=== PATIENT | male | born 1955 | race Caucasian/White ===

== ENCOUNTER 2016-10-15 23:11 | Emergency (ER) | payer MEDICARE, OTHER ==
[2016-10-15 23:16] VITALS: BP 147/85; PULSE 94; RESP 20; TEMP 97.8
[2016-10-15] MEDS ORDERED: PROPARACAINE 0.5% OPHTH DROPS 15 ML BTL LEFT EYE STA (23:56)
[2016-10-16] MEDS ORDERED: TOBRAMYCIN 0.3% OPHTH DROPS 5 ML BTL LEFT EYE STA (00:06)
--- NOTE | 2016-10-16 00:11 | ED ---
General Adult HPI - General Chief complaint: ENT Stated complaint: metal in eye Time Seen by Provider: 10/15/16 23:56 Source: patient, RN notes reviewed Mode of arrival: ambulatory Limitations: no limitations - History of Present Illness Initial comments: Patient is a pleasant 61-year-old male presenting to the emergency department complaining of metal in left eye. Patient was grinding yesterday and noticed metal in his eye. Patient was trying to flush out at home without success and was advised to come to emergency department by family member. Tetanus immunization is less than 5 years. No other area of injury or concern. No visual change. Patient only has mild discomfort in the left eye. - Related Data Home Medications Medication Instructions Recorded Confirmed Albuterol Nebulized [Ventolin 2.5 mg INHALATION RT-QID 12/08/15 10/15/16 Nebulized] Albuterol Sulfate [Proventil Hfa] 1 - 2 puff INHALATION Q6H PRN 12/08/15 Budesonide-Formot 160-4.5 Mcg 2 puff INHALATION RT-BID 12/08/15 10/15/16 [Symbicort 160-4.5 Mcg Inhaler] Tiotropium 18 Mcg/Puff [Spiriva] 1 cap INHALATION RT-DAILY 12/08/15 10/15/16 oxyCODONE-APAP 10-325MG [Percocet 1 tab PO QID PRN 10/15/16 10/15/16 10-325 mg] Allergies Allergy/AdvReac Type Severity Reaction Status Date / Time No Known Allergies Allergy Verified 10/15/16 23:36 Review of Systems ROS Statement: Those systems with pertinent positive or pertinent negative responses have been documented in the HPI. ROS Other: All systems not noted in ROS Statement are negative. Constitutional: Denies: fever Eyes: Reports: eye pain (Mild discomfort, foreign body). Denies: eye discharge , vision change ENT: Denies: ear pain Respiratory: Denies: cough Cardiovascular: Denies: chest pain Endocrine: Denies: fatigue Gastrointestinal: Denies: abdominal pain Genitourinary: Denies: dysuria Musculoskeletal: Denies: back pain Skin: Denies: rash Neurological: Denies: weakness Past Medical History Past Medical History: COPD, Sleep Apnea/CPAP/BIPAP Additional Past Medical History / Comment(s): varicose veins, fell in 2002 with back and shoulder injury History of Any Multi-Drug Resistant Organisms: MRSA Date of last positivie culture/infection: approx 2007 MDRO Source:: back of left leg Past Surgical History: Orthopedic Surgery, Tonsillectomy Additional Past Surgical History / Comment(s): rt hand -little finger, left rotator cuff surgery, rhinoplasty x 2, right shoulder, right carpal tunnel release. Past Anesthesia/Blood Transfusion Reactions: No Reported Reaction Past Psychological History: No Psychological Hx Reported Smoking Status: Former smoker Past Alcohol Use History: None Reported Past Drug Use History: None Reported - Past Family History Mother Family Medical History: No Reported History General Exam Limitations: no limitations General appearance: alert, in no apparent distress Head exam: Present: atraumatic Eye exam: Present: other (Left eye with mild injection, foreign body just inferior to the pupil.) ENT exam: Present: normal oropharynx Neck exam: Present: normal inspection Respiratory exam: Present: normal lung sounds bilaterally Cardiovascular Exam: Present: regular rate, normal rhythm GI/Abdominal exam: Present: soft. Absent: tenderness Extremities exam: Present: normal inspection Neurological exam: Present: alert Psychiatric exam: Present: normal affect, normal mood Skin exam: Present: normal color Course Vital Signs 10/15/16 23:13 Temperature 97.8 F Pulse Rate 94 Respiratory 20 Rate Blood Pressure 147/85 O2 Sat by Pulse 97 Oximetry Procedures - Procedures Initial comment: Foreign body removal left eye. Verbal informed consent provided. Left eye anesthetized using proparacaine. Small foreign body, approximately 2 mm removed using a wet cotton swab. No complication. Disposition Clinical Impression: Foreign body of left eye Disposition: HOME SELF-CARE Condition: Stable Instructions: Eye Foreign Body (ED) Additional Instructions: Please follow-up with your doctor this week for recheck. Return for increased redness, drainage, fever, worsening symptoms or other concerns. Use Tobrex eyedrops: 2 drops 4 times a day for the next 5 days. Referrals: Johan Chaudhary DO [Primary Care Provider] - 1-2 days Time of Disposition: 00:11
== END 2016-10-16 00:15 | disposition home or self-care (01) ==
LOC: EC 23:11
DX: T15.02XA Foreign body in cornea, left eye, initial encounter (principal); J44.9 Chronic obstructive pulmonary disease, unspecified; Z87.891 Personal history of nicotine dependence; Z79.51 Long term (current) use of inhaled steroids; Z79.899 Other long term (current) drug therapy
CPT/HCPCS: 65220; 99283

== ENCOUNTER → 2017-01-29 | Outpatient (CLI) | payer MEDICARE, OTHER | END | disposition home or self-care (01) | LOC: LABWHC1 11:56 | PROVIDERS: ATTEND Orthopaedic Surgery | DX: Z01.812 Encounter for preprocedural laboratory examination (principal) | CPT/HCPCS: 87070 ==

== ENCOUNTER 2017-03-05 04:07 | Emergency (ER) | payer MEDICARE, OTHER ==
[2017-03-05] MEDS ORDERED: ALBUTEROL NEBULIZED 2.5 MG/3 ML INHALATION STA (04:19)
[2017-03-05] MEDS ORDERED: IPRATROPIUM 0.5 MG/2.5 ML NEBU INHALATION STA (04:19)
[2017-03-05] MEDS ORDERED: methylPREDNISolone SOD SUCCI 125 MG/2 ML VIAL IV STA (04:19)
--- NOTE | 2017-03-05 04:23 | ED ---
General Adult HPI - General Chief complaint: Shortness of Breath Stated complaint: SOB Time Seen by Provider: 03/05/17 04:09 Source: patient, EMS, RN notes reviewed, old records reviewed Mode of arrival: EMS Limitations: no limitations - History of Present Illness Initial comments: 7-year-old male with history of COPD presents for evaluation of worsening cough and dyspnea. Patient reports productive cough with yellow rose sputum. Denies any chest pain. Denies fever. Symptoms have been progressing over the past 3 days. Patient is not currently on home oxygen, he does have severe COPD and tobacco use history. No known history of heart failure. Patient denies lower extremity swelling. Denies abdominal pain denies chest pain. Denies vomiting or diarrhea. - Related Data Home Medications Medication Instructions Recorded Confirmed Albuterol Nebulized [Ventolin 2.5 mg INHALATION RT-QID 12/08/15 02/12/17 Nebulized] Albuterol Sulfate [Proventil Hfa] 1 - 2 puff INHALATION RT-Q6H PRN 12/08/1502/17 Budesonide-Formot 160-4.5 Mcg 2 puff INHALATION RT-BID 12/08/15 02/12/17 [Symbicort 160-4.5 Mcg Inhaler] Tiotropium 18 Mcg/Puff [Spiriva] 1 cap INHALATION RT-DAILY 12/08/15 02/12/17 oxyCODONE-APAP 10-325MG [Percocet 1 tab PO QID PRN 10/15/16 02/12/17 10-325 mg] Atorvastatin Calcium [Lipitor] 20 mg PO HS 02/06/17 02/12/17 Previous Rx's Medication Instructions Recorded Rivaroxaban [Xarelto] 10 mg PO DAILY #12 tab 02/12/17 Levofloxacin [Levaquin] 500 mg PO DAILY #14 tab 03/05/17 predniSONE 50 mg PO DAILY #5 tab 03/05/17 Allergies Allergy/AdvReac Type Severity Reaction Status Date / Time No Known Allergies Allergy Verified 02/12/17 14:12 Review of Systems ROS Statement: Those systems with pertinent positive or pertinent negative responses have been documented in the HPI. ROS Other: All systems not noted in ROS Statement are negative. Past Medical History Past Medical History: COPD, Sleep Apnea/CPAP/BIPAP Additional Past Medical History / Comment(s): varicose veins, fell in 2002 with back and shoulder injury History of Any Multi-Drug Resistant Organisms: MRSA Date of last positivie culture/infection: approx 2007 MDRO Source:: back of left leg Past Surgical History: Orthopedic Surgery, Tonsillectomy Additional Past Surgical History / Comment(s): rt hand -little finger, left rotator cuff surgery, rhinoplasty x 2, right shoulder, right carpal tunnel release, TOTAL LEFT SHOULDER ARTHROPLASTY Past Anesthesia/Blood Transfusion Reactions: No Reported Reaction Past Psychological History: No Psychological Hx Reported Smoking Status: Former smoker Past Alcohol Use History: None Reported Past Drug Use History: None Reported - Past Family History Mother Family Medical History: No Reported History General Exam Limitations: no limitations General appearance: alert, in no apparent distress Head exam: Present: atraumatic, normocephalic Eye exam: Present: normal appearance, PERRL ENT exam: Present: normal exam Neck exam: Present: normal inspection. Absent: tenderness, meningismus Respiratory exam: Present: wheezes, decreased breath sounds (Significantly decreased breath sounds particularly on the left), prolonged expiratory. Absent : respiratory distress Cardiovascular Exam: Present: regular rate, normal rhythm GI/Abdominal exam: Present: soft. Absent: distended, tenderness Extremities exam: Present: normal inspection, normal capillary refill. Absent: pedal edema Neurological exam: Present: alert, oriented X3, CN II-XII intact. Absent: motor sensory deficit Psychiatric exam: Present: normal affect, normal mood Skin exam: Present: warm, dry, intact. Absent: cyanosis, diaphoretic Course Vital Signs 03/05/17 03/05/17 03/05/17 04:08 04:32 04:43 Temperature 98.7 F Pulse Rate 97 89 96 Respiratory 24 Rate Blood Pressure 107/56 O2 Sat by Pulse 100 Oximetry - Reevaluation(s) Reevaluation #1: 03/05/17 05:38 On reevaluation, patient is feeling significantly better, improved air entry on pulmonary auscultation. EKG Findings - EKG Comments: EKG Findings:: EKG shows normal sinus rhythm with a ventricular rate 90, UT interval 124, castration 78, QTC 447, no signs of ischemia Medical Decision Making - Medical Decision Making 61-year-old male with COPD presenting with cough and dyspnea consistent with COPD exacerbation. Chest x-ray shows COPD with possible early infiltrate and pneumonia. Patient's vital signs are stable. Laboratory studies reveal white blood cell count 7.0, stable hemoglobin, reactive platelets of 497 troponin negative EKG nonischemic. Patient is significantly improved after steroids and advised albuterol and Atrovent. He is eager for discharge, does not want to be admitted for treatment. He will be started on steroids and Levaquin. He will return the emergency department with worsening symptoms. 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 - Lab Data Result diagrams: 03/05/17 04:20 03/05/17 04:20 Lab Results 03/05/17 03/05/17 03/05/17 Range/Units 04:20 04:20 04:20 WBC 7.0 (3.8-10.6) k/uL RBC 3.44 L (4.30-5.90) m/uL Hgb 10.3 L (13.0-17.5) gm/dL Hct 31.9 L (39.0-53.0) % MCV 92.6 (80.0-100.0) fL MCH 29.9 (25.0-35.0) pg MCHC 32.3 (31.0-37.0) g/dL RDW 13.6 (11.5-15.5) % Plt Count 497 H D (150-450) k/uL Neutrophils % 78 % Lymphocytes % 12 % Monocytes % 6 % Eosinophils % 1 % Basophils % 0 % Neutrophils # 5.5 (1.3-7.7) k/uL Lymphocytes # 0.9 L (1.0-4.8) k/uL Monocytes # 0.4 (0-1.0) k/uL Eosinophils # 0.1 (0-0.7) k/uL Basophils # 0.0 (0-0.2) k/uL Hypochromasia Slight PT (9.0-12.0) sec INR (<1.2) APTT (22.0-30.0) sec Sodium 139 (137-145) mmol/L Potassium 4.7 (3.5-5.1) mmol/L Chloride 100 (98-107) mmol/L Carbon Dioxide 28 (22-30) mmol/L Anion Gap 11 mmol/L BUN 25 H (9-20) mg/dL Creatinine 1.20 (0.66-1.25) mg/dL Est GFR (MDRD) Af Amer >60 (>60 ml/min/1.73 sqM) Est GFR (MDRD) Non-Af >60 (>60 ml/min/1.73 sqM) Glucose 117 H (74-99) mg/dL Calcium 8.5 (8.4-10.2) mg/dL Magnesium 2.2 (1.6-2.3) mg/dL Total Bilirubin 0.2 (0.2-1.3) mg/dL AST 25 (17-59) U/L ALT 32 (21-72) U/L Alkaline Phosphatase 111 (38-126) U/L Total Creatine Kinase 193 H (55-170) U/L CK-MB (CK-2) 3.7 H* (0.0-2.4) ng/mL CK-MB (CK-2) Rel Index 1.9 Troponin I <0.012 (0.000-0.034) ng/mL NT-Pro-B Natriuret Pep pg/mL Total Protein 6.6 (6.3-8.2) g/dL Albumin 3.4 L (3.5-5.0) g/dL 03/05/17 03/05/17 Range/Units 04:20 04:20 WBC (3.8-10.6) k/uL RBC (4.30-5.90) m/uL Hgb (13.0-17.5) gm/dL Hct (39.0-53.0) % MCV (80.0-100.0) fL MCH (25.0-35.0) pg MCHC (31.0-37.0) g/dL RDW (11.5-15.5) % Plt Count (150-450) k/uL Neutrophils % % Lymphocytes % % Monocytes % % Eosinophils % % Basophils % % Neutrophils # (1.3-7.7) k/uL Lymphocytes # (1.0-4.8) k/uL Monocytes # (0-1.0) k/uL Eosinophils # (0-0.7) k/uL Basophils # (0-0.2) k/uL Hypochromasia PT 11.2 (9.0-12.0) sec INR 1.2 H (<1.2) APTT 24.8 (22.0-30.0) sec Sodium (137-145) mmol/L Potassium (3.5-5.1) mmol/L Chloride (98-107) mmol/L Carbon Dioxide (22-30) mmol/L Anion Gap mmol/L BUN (9-20) mg/dL Creatinine (0.66-1.25) mg/dL Est GFR (MDRD) Af Amer (>60 ml/min/1.73 sqM) Est GFR (MDRD) Non-Af (>60 ml/min/1.73 sqM) Glucose (74-99) mg/dL Calcium (8.4-10.2) mg/dL Magnesium (1.6-2.3) mg/dL Total Bilirubin (0.2-1.3) mg/dL AST (17-59) U/L ALT (21-72) U/L Alkaline Phosphatase (38-126) U/L Total Creatine Kinase (55-170) U/L CK-MB (CK-2) (0.0-2.4) ng/mL CK-MB (CK-2) Rel Index Troponin I (0.000-0.034) ng/mL NT-Pro-B Natriuret Pep 100 pg/mL Total Protein (6.3-8.2) g/dL Albumin (3.5-5.0) g/dL Disposition Clinical Impression: Acute exacerbation of chronic obstructive airways disease, Community acquired pneumonia Disposition: HOME SELF-CARE Condition: Fair Instructions: COPD (Chronic Obstructive Pulmonary Disease) (ED), Pneumonia (ED) Prescriptions: Levofloxacin [Levaquin] 500 mg PO DAILY #14 tab predniSONE 50 mg PO DAILY #5 tab Referrals: None,Stated [Primary Care Provider] - 1-2 days Derek Naranjo MD [STAFF PHYSICIAN] - 1-2 days Time of Disposition: 05:42
[2017-03-05 04:32] LABS: Basophils % (A) 0 %; Eosinophils # (A) 0.1 k/uL (0-0.7); Eosinophils % (A) 1 %; HCT 31.9 % (39.0-53.0); HGB 10.3 gm/dL (13.0-17.5); Hypochromasia Slight; Lymphocytes # (A) 0.9 k/uL (1.0-4.8); Lymphocytes % (A) 12 %; MCH 29.9 pg (25.0-35.0); MCHC 32.3 g/dL (31.0-37.0); MCV 92.6 fL (80.0-100.0); Mean Platelet Volume 7.2; Monocytes # (A) 0.4 k/uL (0-1.0); Monocytes % (A) 6 %; Neutrophils # (A) 5.5 k/uL (1.3-7.7); Neutrophils % (A) 78 %; RBC 3.44 m/uL (4.30-5.90); RDW 13.6 % (11.5-15.5)
[2017-03-05 04:41] LABS: Platelet Count 497 k/uL (150-450)
[2017-03-05 04:47] LABS: ALT 32 U/L (21-72); AST 25 U/L (17-59); Albumin 3.4 g/dL (3.5-5.0); Alkaline Phosphatase 111 U/L (38-126); Anion Gap 11 mmol/L; Blood Urea Nitrogen 25 mg/dL (9-20); Calcium 8.5 mg/dL (8.4-10.2); Carbon Dioxide 28 mmol/L (22-30); Chloride 100 mmol/L (98-107); Glucose 117 mg/dL (74-99); Magnesium 2.2 mg/dL (1.6-2.3); Potassium 4.7 mmol/L (3.5-5.1); Sodium 139 mmol/L (137-145); Total Bilirubin 0.2 mg/dL (0.2-1.3); Total Protein 6.6 g/dL (6.3-8.2)
[2017-03-05 04:52] LABS: INR 1.2 (<1.2); Partial Thromboplastin Time 24.8 sec (22.0-30.0); Prothrombin Time 11.2 sec (9.0-12.0)
[2017-03-05 05:13] LABS: Creatine Kinase 193 U/L (55-170)
--- NOTE | 2017-03-05 05:13 | XR ---
EXAM: XR Chest, 2 Views CLINICAL HISTORY: Reason: difficulty breathing TECHNIQUE: Frontal and lateral views of the chest. COMPARISON: 02/01/17 FINDINGS: Lungs: Chronic interstitial thickening and stable sequela from chronic obstructive pulmonary disease. Left basilar atelectasis. Questionable subtle/early peribronchial infiltrates in the left upper lobe. Pleural space: Unremarkable. No pneumothorax. Heart: Unremarkable. No cardiomegaly. Mediastinum: Unremarkable. Bones/joints: Left shoulder total arthroplasty. Degenerative disc disease. Upper abdomen: Chronic left hemidiaphragm elevation. IMPRESSION: Findings suggest mild peribronchial infiltrate in the left upper lobe which could indicate bronchiolitis or early pneumonia. COPD.
[2017-03-05 05:26] LABS: Troponin I <0.012 ng/mL (0.000-0.034)
[2017-03-05 05:32] LABS: Creatine Kinase MB 3.7 ng/mL (0.0-2.4)
[2017-03-06 22:54] VITALS: BP 107/56; PULSE 90; RESP 18; TEMP 98.4
== END 2017-03-05 05:56 | disposition home or self-care (01) ==
LOC: EC 04:07
DX: J44.1 Chronic obstructive pulmonary disease with (acute) exacerbation (principal); J18.9 Pneumonia, unspecified organism; G47.30 Sleep apnea, unspecified; Z99.89 Dependence on other enabling machines and devices; Z86.14 Personal history of Methicillin resistant Staphylococcus aureus infection; Z87.891 Personal history of nicotine dependence; Z79.51 Long term (current) use of inhaled steroids; Z79.899 Other long term (current) drug therapy
CPT/HCPCS: 99285 ×2; 96374 ×2; 36415; 94640; 93005; 83880; 80053; 82550; 82553; 83735; 84484; 85025; 85610; 85730; 71046; J2930

== ENCOUNTER → 2017-07-30 | Outpatient (CLI) | payer MEDICARE, OTHER ==
--- NOTE | 2017-07-30 16:40 | CTL ---
EXAMINATION TYPE: CT Low Dose Lung DATE OF EXAM ORDERED: 07/30/2017 HISTORY: Long-term tobacco use. Lung cancer screening CT DLP: 45.[address] CTDI: 1.2 mGy Automated exposure control for dose reduction was used. SCREENING VISIT: Initial study COMPARISON: Chest x-ray March 08, 2017 TECHNIQUE: Low dose computed tomography scan was performed through the chest at 1 mm thick sections a nd reconstructed images in the coronal plane at [address] DIAGNOSTIC QUALITY: Satisfactory FINDINGS: LUNG NODULES: Present, detailed below: Right lower lobe a area of irregular nodular consolidation measuring approximately 1.6 x 1.2 cm axial image 225 with some surrounding reticulation. This is not clearly seen on comparison chest x-ray. LUNGS: COPD: Severity: Moderate to severe Fibrosis: Severity: Moderate prominent in lung apices and bases anteriorly with additional involvemen t in the posterior inferior right upper lobe near fissure. Lymph nodes: None Other findings: None BILATERAL PLEURAL SPACE: Effusion: None Calcification: None Thickening: None Pneumothorax: None Slightly elevated left hemidiaphragm is redemonstrated. HEART: Heart Size: Normal Coronary calcification: Moderate to severe Pericardial effusion: None OTHER FINDINGS: Upper abdomen: A 1.2 cm low dense lesion anterior left hepatic lobe axial image 278 likely reflects s imple cyst or other benign etiology. Bony thorax: Metallic hardware from reverse left shoulder arthroplasty is partially imaged. Well kareen icated lucent areas posterior aspect right humeral head likely product of prior surgical hardware. Supraclavicular region: No suspicious findings seen. Other: Mild calcified plaque of aorta. IMPRESSION: Moderate to severe emphysematous change with suspicious 1.6 x 1.2 cm spiculated nodule or nodular consolidation in the right lower lobe. Moderate to severe 3 vessel coronary artery calcifica tion is present. FOLLOW UP CT CHEST RECOMMENDATION: Advise PET/CT and/or short-term follow-up diagnostic contrast-en hanced chest CT CT LUNG RAD: Lung-Rad [id number] Suspicious X- Spiculation S- Moderate to severe coronary artery calcification. Correlate with additional cardiac risk factors.
== END | disposition home or self-care (01) ==
LOC: RADCTMAIN 14:18
PROVIDERS: ATTEND Internal Medicine Critical Care Medicine
DX: Z12.2 Encounter for screening for malignant neoplasm of respiratory organs (principal); J34.9 Unspecified disorder of nose and nasal sinuses; I25.10 Atherosclerotic heart disease of native coronary artery without angina pectoris; Z87.891 Personal history of nicotine dependence

== ENCOUNTER → 2017-08-10 | Outpatient (CLI) | payer MEDICARE, OTHER ==
--- NOTE | 2017-08-12 08:42 | PE ---
EXAMINATION TYPE: PET CT fusion skull to thigh DATE OF EXAM: 08/10/2017 COMPARISON: Low-dose lung screening CT July 30, 2017 HISTORY: Solitary pulmonary nodule, recent abnormal CT TECHNIQUE: Following the intravenous administration of 14.21 mCi of F-18 FDG, whole body images are performed from the skull base to the midthigh. Images are reviewed on the computer in the coronal, a xial, and sagittal planes. Reconstructed rotating images are created on independent workstation and reviewed on the computer. A noncontrast CT is performed in conjunction with the PET scan. SCAN: Initial Scan FINDINGS: SKULL BASE AND NECK: No suspicious hypermetabolic uptake is present CHEST, MEDIASTINUM, AND HILAR REGION: Moderate to severe underlying emphysematous change is redemonst rated. Area of concern irregular nodular consolidation lateral aspect right lower lobe axial image 11 6 measures 1.2 x 1.0 cm but does not show abnormal hypermetabolic uptake. No suspicious hypermetabolic uptake in the thorax is present. ABDOMEN AND PELVIS: No suspicious hypermetabolic uptake is present. Patient has very little intra-abd ominal fat. OSSEOUS STRUCTURES: No suspicious hypermetabolic uptake is present. OTHER CT: Metallic hardware from left shoulder surgery is noted on localizer. There is moderate parenchymal fibrosis redemonstrated. Moderate to severe three-vessel coronary arter y calcification is again seen. There is moderate atherosclerotic change of the abdominal aorta extending into pelvic branch vessels. Bladder is poorly distended and thus suboptimally evaluated. Prostate gland is upper limits of normal in size. IMPRESSION: No suspicious hypermetabolic uptake is seen to suggest malignancy. Recommendation: Annual low-dose lung screening CT in one year's time.
== END | disposition home or self-care (01) ==
LOC: RADPETMAIN 10:22
PROVIDERS: ATTEND Internal Medicine Critical Care Medicine
DX: R91.8 Other nonspecific abnormal finding of lung field (principal)
CPT/HCPCS: 78815; A9552

== ENCOUNTER 2017-09-06 10:19 | Day surgery (SDC) | payer MEDICARE, OTHER ==
[2017-09-02 14:38] VITALS: BMI 17.5
[~2017-09-06 10:19] MED LIST: LACTATED RINGERS 1,000 ML IV SCH; LIDOCAINE 1% 20 ML VIAL (10MG/ML) FOR IV START INTRADERMA PRN
[2017-09-06] MEDS ORDERED: LACTATED RINGERS 1,000 ML IV ONE (10:31)
[2017-09-06 10:43] VITALS: RESP 18; TEMP 98
[2017-09-06] MEDS ORDERED: LIDOCAINE 1% INJ 10MG/ML (20 ML MDV) ONE (11:08)
[2017-09-06] MEDS ORDERED: PROPOFOL 10 MG/ML 20 ML VIAL IV ONE (11:08)
[2017-09-06] MEDS ORDERED: GLYCOPYRROLATE 0.2 MG/ML 2 ML VIAL ONE (11:08)
--- NOTE | 2017-09-06 11:29 | P.GSHP ---
History of Present Illness H&P Date: 09/06/17 Chief Complaint: Dysphagia Patient here today with complaints of increasing dysphagia. Mild reflux symptoms. Occasional vomiting. Some weight loss. No history of known malignancy. Recent PET scan normal. Past Medical History Past Medical History: COPD, Hyperlipidemia, Musculoskeletal Disorder Additional Past Medical History / Comment(s): Varicose Veins. MAJOR FALL in 2002 W/ SPINE & shoulder injury; HAS STEEL SHAHANA IN SHOULDER. LEAKING VALVES IN HEART, NO TX. HAVING PROBLEM WHEN EATING, FEELS LIKE FOOD STUCK. History of Any Multi-Drug Resistant Organisms: MRSA Date of last positivie culture/infection: approx 2007 MDRO Source:: back of left leg Past Surgical History: Orthopedic Surgery, Tonsillectomy Additional Past Surgical History / Comment(s): rt hand -little finger, ADONAY rotator cuff surgery, SEPTUM/Rhinoplasty x 2, right carpal tunnel release, TOTAL LEFT SHOULDER ARTHROPLASTY. COLONOSCOPY Past Anesthesia/Blood Transfusion Reactions: No Reported Reaction Smoking Status: Former smoker - Past Family History Mother Family Medical History: COPD Father Family Medical History: Deep Vein Thrombosis (DVT) Medications and Allergies Home Medications Medication Instructions Recorded Confirmed Type Albuterol Nebulized [Ventolin 2.5 mg INHALATION RT-QID PRN 12/08/15 09/02/17 History Nebulized] Budesonide-Formot 160-4.5 Mcg 2 puff INHALATION RT-BID 12/08/15 09/02/17 History [Symbicort 160-4.5 Mcg Inhaler] Tiotropium 18 Mcg/Puff [Spiriva] 1 cap INHALATION RT-DAILY 12/08/15 09/02/17 History Albuterol Sulfate [Proair Hfa] 1 - 2 puff INHALATION Q6HR PRN 09/02/17 09/02/17 History Ibuprofen [Motrin Ib] 400 mg PO Q6H PRN 09/02/17 09/02/17 History Simvastatin [Zocor] 40 mg PO DAILY 09/02/17 09/02/17 History oxyCODONE HCL 10 mg PO QID PRN 09/02/17 09/02/17 History Allergies Allergy/AdvReac Type Severity Reaction Status Date / Time No Known Allergies Allergy Verified 09/02/17 14:16 Surgical - Exam Vital Signs Temp Pulse Resp BP Pulse Ox 98.0 F 70 18 128/74 99 09/06/17 10:42 09/06/17 10:42 09/06/17 10:42 09/06/17 10:42 09/06/17 10:42 Physical exam: General: Malnourished thin male HEENT: Normocephalic, sclerae nonicteric Abdomen: Nontender, nondistended Extremities: No edema Neuro: Alert and oriented Assessment and Plan (1) Dysphagia Narrative/Plan: Will proceed with upper endoscopy at this time. Current Visit: Yes Status: Acute Code(s): R13.10 - DYSPHAGIA, UNSPECIFIED SNOMED Code(s): 54774727
--- NOTE | 2017-09-06 11:46 | P.PCN ---
Date of Procedure: 09/06/17 Procedure(s) Performed: Preoperative Dx: Dysphagia Postoperative Dx: Mild gastritis, distal esophagitis, small hiatal hernia Procedure: EGD with Bx Anesthesia: Sedation Endoscopist: Dr. Scanlon Specimens: Antrum, distal esophagus Endoscopic Procedure: The patient was on the endoscopy table in the left decubitus position. The Olympus gastroscope was inserted into the oropharynx and passed under direct visualization to the region of the third portion of the duodenum. From that point the scope was slowly withdrawn inspecting all surfaces carefully. There were no neoplastic inflammatory or polypoid lesions throughout the duodenum. The pylorus was widely patent. The stomach was carefully inspected. There was mild gastritis present. A biopsy of the antrum took place to rule out H. pylori. Retroflexion revealed a small sliding hiatal hernia. The scope was approximately 1-1.5 cm in length. There is very subtle narrowing at the GE junction itself. Mild distal esophagitis was present as well. A few small linear erosions were present there were non-circumferential and measuring less than 2 cm in length. Biopsies of the distal esophagus took place. The mid and proximal esophagus appeared normal. The patient was then taken to the recovery room in stable condition per anesthesia guidelines. Recommendations: Begin antiacid therapy. If symptoms persist consider modified barium swallow.
[2017-09-06 12:04] VITALS: BP 143/71; PULSE 81
== END 2017-09-06 12:27 | disposition home or self-care (01) ==
LOC: ORWHC2ENDO 10:19
PROVIDERS: ATTEND Surgery
DX: K29.50 Unspecified chronic gastritis without bleeding (principal); K22.10 Ulcer of esophagus without bleeding; K44.9 Diaphragmatic hernia without obstruction or gangrene; E78.5 Hyperlipidemia, unspecified; J44.9 Chronic obstructive pulmonary disease, unspecified; M79.9 Soft tissue disorder, unspecified; Z86.14 Personal history of Methicillin resistant Staphylococcus aureus infection; Z87.891 Personal history of nicotine dependence; Z79.899 Other long term (current) drug therapy
CPT/HCPCS: 88305; 88312; 43239; J2001; J2704

== ENCOUNTER → 2017-11-05 | Outpatient (CLI) | payer MEDICARE, OTHER ==
[2017-11-05 15:03] LABS: Basophils % (A) 1 %; Eosinophils # (A) 0.1 k/uL (0-0.7); Eosinophils % (A) 1 %; HCT 36.6 % (39.0-53.0); HGB 11.8 gm/dL (13.0-17.5); Lymphocytes % (A) 23 %; MCH 30.4 pg (25.0-35.0); MCHC 32.3 g/dL (31.0-37.0); MCV 94.2 fL (80.0-100.0); Mean Platelet Volume 6.5; Monocytes # (A) 0.2 k/uL (0-1.0); Monocytes % (A) 6 %; Neutrophils # (A) 2.8 k/uL (1.3-7.7); Neutrophils % (A) 67 %; Platelet Count 310 k/uL (150-450); RBC 3.89 m/uL (4.30-5.90); RDW 13.3 % (11.5-15.5); WBC 4.2 k/uL (3.8-10.6)
[2017-11-05 15:14] LABS: ALT 45 U/L (21-72); AST 40 U/L (17-59); Albumin 3.8 g/dL (3.5-5.0); Alkaline Phosphatase 68 U/L (38-126); Anion Gap 6 mmol/L; Blood Urea Nitrogen 12 mg/dL (9-20); Calcium 9.1 mg/dL (8.4-10.2); Carbon Dioxide 28 mmol/L (22-30); Chloride 104 mmol/L (98-107); Cholesterol 190 mg/dL (<200); Creatine Kinase 173 U/L (55-170); Glucose 101 mg/dL (74-99); HDL Cholesterol 87 mg/dL (40-60); LDL Cholesterol,Calculated 93 mg/dL (0-99); Potassium 4.4 mmol/L (3.5-5.1); Sodium 138 mmol/L (137-145); Total Bilirubin 0.5 mg/dL (0.2-1.3); Total Protein 6.6 g/dL (6.3-8.2); Triglycerides 50 mg/dL (<150)
[2017-11-05 15:44] LABS: PSA Annual Screen 2.07 ng/mL (0.00-4.00)
== END | disposition home or self-care (01) ==
LOC: LABWHC1 14:16
PROVIDERS: ATTEND Internal Medicine Critical Care Medicine
DX: J44.9 Chronic obstructive pulmonary disease, unspecified (principal); E78.5 Hyperlipidemia, unspecified
CPT/HCPCS: 80061; 80053; 82550; 85025; 36415; G0103

== ENCOUNTER 2018-01-01 11:49 | Day surgery (SDC) | payer MEDICARE, OTHER ==
[2017-12-30 13:23] VITALS: BMI 16.9
[2018-01-01] MEDS ORDERED: LIDOCAINE 1% 20 ML VIAL (10MG/ML) FOR IV START INTRADERMA ONE (12:20)
[2018-01-01] MEDS ORDERED: LACTATED RINGERS 1,000 ML IV ONE (12:20)
[2018-01-01 12:26] VITALS: RESP 16; TEMP 98.4
[2018-01-01] MEDS ORDERED: PROPOFOL 10 MG/ML 20 ML VIAL IV ONE (12:27)
--- NOTE | 2018-01-01 12:30 | P.GSHP ---
History of Present Illness H&P Date: 01/01/18 Chief Complaint: Colon cancer screening Patient here today for screening colonoscopy. Last colonoscopy was several years ago. No bowel related complaints. No family history of colon cancer. Past Medical History Past Medical History: COPD, Musculoskeletal Disorder, Sleep Apnea/CPAP/BIPAP Additional Past Medical History / Comment(s): varicose veins, back and shoulder injury History of Any Multi-Drug Resistant Organisms: MRSA Date of last positivie culture/infection: approx 2007 MDRO Source:: back of left leg Past Surgical History: Orthopedic Surgery, Tonsillectomy Additional Past Surgical History / Comment(s): rt hand -little finger, left rotator cuff surgery, rhinoplasty x 2, right shoulder, right carpal tunnel release, TOTAL LEFT SHOULDER ARTHROPLASTY Past Anesthesia/Blood Transfusion Reactions: No Reported Reaction Smoking Status: Former smoker - Past Family History Mother Family Medical History: COPD Father Family Medical History: Deep Vein Thrombosis (DVT) Medications and Allergies Home Medications Medication Instructions Recorded Confirmed Type Albuterol Nebulized [Ventolin 2.5 mg INHALATION RT-QID PRN 12/08/15 12/30/17 History Nebulized] Budesonide-Formot 160-4.5 Mcg 2 puff INHALATION RT-BID 12/08/15 12/30/17 History [Symbicort 160-4.5 Mcg Inhaler] Tiotropium 18 Mcg/Puff [Spiriva] 1 cap INHALATION RT-DAILY 12/08/15 12/30/17 History Albuterol Sulfate [Proair Hfa] 1 - 2 puff INHALATION Q6HR PRN 09/02/17 01/01/18 History Simvastatin [Zocor] 40 mg PO DAILY 09/02/17 01/01/18 History oxyCODONE HCL 10 mg PO QID PRN 09/02/17 12/30/17 History Omeprazole [PriLOSEC] 20 mg PO AC-BRKFST #90 cap 09/06/17 01/01/18 Rx Allergies Allergy/AdvReac Type Severity Reaction Status Date / Time No Known Allergies Allergy Verified 01/01/18 12:06 Surgical - Exam Vital Signs Temp Pulse Resp BP Pulse Ox 98.4 F 82 16 139/99 97 01/01/18 12:24 01/01/18 12:24 01/01/18 12:24 01/01/18 12:24 01/01/18 12:24 Physical exam: General: Well-developed, appears quite thin HEENT: Normocephalic, sclerae nonicteric Abdomen: Nontender, nondistended Extremities: No edema Neuro: Alert and oriented Assessment and Plan (1) Colon cancer screening Narrative/Plan: Will proceed with colonoscopy Current Visit: Yes Status: Acute Code(s): Z12.11 - ENCOUNTER FOR SCREENING FOR MALIGNANT NEOPLASM OF COLON SNOMED Code(s): 851334764
--- NOTE | 2018-01-01 12:48 | P.PCN ---
Date of Procedure: 01/01/18 Procedure(s) Performed: PREOPERATIVE DIAGNOSIS: Colon cancer screening POSTOPERATIVE DIAGNOSIS: Normal exam with suboptimal prep PROCEDURE: Colonoscopy ANESTHESIA: MAC SURGEON: Tristan Scanlon M.D. SPECIMENS: None ENDOSCOPIC PROCEDURE: The patient was placed on the endoscopy table in the left decubitus position. The Olympus colonoscope was inserted into the anus and passed under direct visualization to the base of the cecum. The appendiceal orifice was visualized. From that point the scope was slowly withdrawn inspecting all surfaces carefully. There were no neoplastic inflammatory or polypoid lesions throughout the cecum, ascending, transverse, descending, sigmoid and rectum. There was no diverticulosis noted. Overall the patient's prep was suboptimal with some retained liquid and solid stool seen scattered throughout the colon. This did limit our mucosal evaluation somewhat. Digital rectal examination was normal. The patient was taken to the recovery room in stable condition per anesthesia guidelines. RECOMMENDATIONS: Increase fiber
[2018-01-01 13:09] VITALS: BP 123/70; PULSE 99
== END 2018-01-01 13:24 | disposition home or self-care (01) ==
LOC: ORWHC2ENDO 11:49
PROVIDERS: ATTEND Surgery
DX: Z12.11 Encounter for screening for malignant neoplasm of colon (principal); E78.5 Hyperlipidemia, unspecified; J44.9 Chronic obstructive pulmonary disease, unspecified; K21.9 Gastro-esophageal reflux disease without esophagitis; G47.33 Obstructive sleep apnea (adult) (pediatric); Z99.89 Dependence on other enabling machines and devices; G89.29 Other chronic pain; M54.9 Dorsalgia, unspecified; Z86.14 Personal history of Methicillin resistant Staphylococcus aureus infection; Z87.891 Personal history of nicotine dependence; Z79.51 Long term (current) use of inhaled steroids; Z79.899 Other long term (current) drug therapy; Z79.891 Long term (current) use of opiate analgesic
CPT/HCPCS: J2704; G0121; 45378

== ENCOUNTER 2019-06-07 13:08 | Inpatient (IN) | payer MEDICARE, OTHER ==
[2019-06-07] MEDS ORDERED: methylPREDNISolone SOD SUCCI 125 MG/2 ML VIAL IV STA (13:18)
--- NOTE | 2019-06-07 13:23 | ED ---
SOB HPI - General Chief Complaint: Shortness of Breath Stated Complaint: SOB, COUGH Time Seen by Provider: 06/07/19 13:08 Source: patient, EMS, RN notes reviewed Mode of arrival: EMS Limitations: no limitations - History of Present Illness Initial Comments: This is a 64-year-old male with a history of COPD who was on a transplant list for lung transplant who states he is short of breath or past 3 days he progressively worse he currently a 5 L of oxygen at home he did call EMS he was given a neb treatment in route with some improvement. He denies any fevers chills nausea vomiting sweats he has a slight cough no known exposure to any infectious diseases at this time. MD Complaint: shortness of breath - Related Data Home Medications Medication Instructions Recorded Confirmed Budesonide-Formot 160-4.5 Mcg 2 puff INHALATION RT-BID 12/08/15 06/07/19 [Symbicort 160-4.5 Mcg Inhaler] Tiotropium 18 Mcg/Puff [Spiriva] 1 cap INHALATION RT-DAILY 12/08/15 06/07/19 Albuterol Sulfate [Proair Hfa] 2 puff INHALATION RT-Q6H PRN 09/02/17 06/07/19 oxyCODONE HCL [oxyCODONE HCL (IR)] 10 mg PO QID PRN 09/02/17 06/07/19 Amoxicillin/Potassium Clav 1 tab PO BID 06/07/19 06/07/19 [Augmentin 875-125 Tablet] predniSONE See Taper PO DAILY 06/07/19 06/07/19 Allergies Allergy/AdvReac Type Severity Reaction Status Date / Time No Known Allergies Allergy Verified 06/07/19 14:11 Review of Systems ROS Statement: Those systems with pertinent positive or pertinent negative responses have been documented in the HPI. ROS Other: All systems not noted in ROS Statement are negative. Past Medical History Past Medical History: COPD, Musculoskeletal Disorder, Sleep Apnea/CPAP/BIPAP Additional Past Medical History / Comment(s): varicose veins, back and shoulder injury History of Any Multi-Drug Resistant Organisms: MRSA Date of last positivie culture/infection: approx 2007 MDRO Source:: back of left leg Past Surgical History: Orthopedic Surgery, Tonsillectomy Additional Past Surgical History / Comment(s): rt hand -little finger, left rotator cuff surgery, rhinoplasty x 2, right shoulder, right carpal tunnel release, TOTAL LEFT SHOULDER ARTHROPLASTY Past Anesthesia/Blood Transfusion Reactions: No Reported Reaction Past Psychological History: No Psychological Hx Reported Smoking Status: Former smoker Past Alcohol Use History: None Reported Past Drug Use History: None Reported - Past Family History Mother Family Medical History: COPD Father Family Medical History: Deep Vein Thrombosis (DVT) General Exam - General Exam Comments Initial Comments: This is a well-developed sec appearing male who is awake alert oriented 3 he does demonstrate evidence of respiratory distress Limitations: no limitations General appearance: alert, anxious, in distress Head exam: Present: atraumatic, normocephalic, normal inspection Eye exam: Present: normal appearance, PERRL, EOMI. Absent: scleral icterus, conjunctival injection, periorbital swelling ENT exam: Present: mucous membranes dry Neck exam: Present: normal inspection. Absent: tenderness, meningismus, lympha denopathy Respiratory exam: Present: normal lung sounds bilaterally, wheezes, accessory muscle use, decreased breath sounds. Absent: respiratory distress, rales, rhonchi, stridor Cardiovascular Exam: Present: normal rhythm, tachycardia, normal heart sounds. Absent: systolic murmur, diastolic murmur, rubs, gallop, clicks GI/Abdominal exam: Present: soft, normal bowel sounds. Absent: distended, tenderness, guarding, rebound, rigid Extremities exam: Present: normal inspection, full ROM, normal capillary refill. Absent: tenderness, pedal edema, joint swelling, calf tenderness Back exam: Present: normal inspection Neurological exam: Present: alert, oriented X3, CN II-XII intact Psychiatric exam: Present: normal affect, normal mood Skin exam: Present: warm, dry, intact, normal color. Absent: rash Course Vital Signs 06/07/19 06/07/19 06/07/19 13:11 13:16 13:29 Temperature 97.8 F Pulse Rate 115 H 112 H Respiratory 30 H 30 H 30 H Rate Blood Pressure 143/80 O2 Sat by Pulse 97 97 Oximetry 06/07/19 14:13 Temperature Pulse Rate 102 H Respiratory 28 H Rate Blood Pressure O2 Sat by Pulse 96 Oximetry - Reevaluation(s) Reevaluation #1: 06/07/19 14:30 Reevaluation patient reveals that he feels somewhat improved after his initial treatment Medical Decision Making - Medical Decision Making Reevaluation patient reveals his breathing be stable at this time I did discuss case initially with Dr. Naranjo and later with Dr. Valiente who did see the patient in the emergency department. He will be admitted for inpatient treatment of pneumonia he is undergoing influenza andCovid- 19 testing at this time. - Lab Data Result diagrams: 06/07/19 13:21 06/07/19 13:21 Lab Results 06/07/19 06/07/19 06/07/19 Range/Units 13:21 13:21 13:21 WBC 16.2 H (3.8-10.6) k/uL RBC 4.17 L (4.30-5.90) m/uL Hgb 13.0 (13.0-17.5) gm/dL Hct 39.2 (39.0-53.0) % MCV 93.9 (80.0-100.0) fL MCH 31.3 (25.0-35.0) pg MCHC 33.3 (31.0-37.0) g/dL RDW 13.0 (11.5-15.5) % Plt Count 315 (150-450) k/uL Neutrophils % 95 % Lymphocytes % 2 % Monocytes % 2 % Eosinophils % 0 % Basophils % 0 % Neutrophils # 15.5 H (1.3-7.7) k/uL Lymphocytes # 0.4 L (1.0-4.8) k/uL Monocytes # 0.3 (0-1.0) k/uL Eosinophils # 0.0 (0-0.7) k/uL Basophils # 0.0 (0-0.2) k/uL PT 9.3 (9.0-12.0) sec INR 0.9 (<1.2) APTT 25.3 (22.0-30.0) sec Sodium 134 L (137-145) mmol/L Potassium 4.1 (3.5-5.1) mmol/L Chloride 97 L (98-107) mmol/L Carbon Dioxide 32 H (22-30) mmol/L Anion Gap 5 mmol/L BUN 36 H (9-20) mg/dL Creatinine 0.68 (0.66-1.25) mg/dL Est GFR (CKD-EPI)AfAm >90 (>60 ml/min/1.73 sqM) Est GFR (CKD-EPI)NonAf >90 (>60 ml/min/1.73 sqM) Glucose 217 H (74-99) mg/dL Plasma Lactic Acid Cruz (0.7-2.0) mmol/L Calcium 8.4 (8.4-10.2) mg/dL Magnesium 2.7 H (1.6-2.3) mg/dL Total Bilirubin 0.5 (0.2-1.3) mg/dL AST 41 (17-59) U/L ALT 23 (4-49) U/L Alkaline Phosphatase 86 (38-126) U/L Creatine Kinase 51 L (55-170) U/L Troponin I (0.000-0.034) ng/mL NT-Pro-B Natriuret Pep pg/mL Total Protein 5.9 L (6.3-8.2) g/dL Albumin 3.0 L (3.5-5.0) g/dL 06/07/19 06/07/19 06/07/19 Range/Units 13:21 13:21 13:21 WBC (3.8-10.6) k/uL RBC (4.30-5.90) m/uL Hgb (13.0-17.5) gm/dL Hct (39.0-53.0) % MCV (80.0-100.0) fL MCH (25.0-35.0) pg MCHC (31.0-37.0) g/dL RDW (11.5-15.5) % Plt Count (150-450) k/uL Neutrophils % % Lymphocytes % % Monocytes % % Eosinophils % % Basophils % % Neutrophils # (1.3-7.7) k/uL Lymphocytes # (1.0-4.8) k/uL Monocytes # (0-1.0) k/uL Eosinophils # (0-0.7) k/uL Basophils # (0-0.2) k/uL PT (9.0-12.0) sec INR (<1.2) APTT (22.0-30.0) sec Sodium (137-145) mmol/L Potassium (3.5-5.1) mmol/L Chloride (98-107) mmol/L Carbon Dioxide (22-30) mmol/L Anion Gap mmol/L BUN (9-20) mg/dL Creatinine (0.66-1.25) mg/dL Est GFR (CKD-EPI)AfAm (>60 ml/min/1.73 sqM) Est GFR (CKD-EPI)NonAf (>60 ml/min/1.73 sqM) Glucose (74-99) mg/dL Plasma Lactic Acid Cruz 2.6 H* (0.7-2.0) mmol/L Calcium (8.4-10.2) mg/dL Magnesium (1.6-2.3) mg/dL Total Bilirubin (0.2-1.3) mg/dL AST (17-59) U/L ALT (4-49) U/L Alkaline Phosphatase (38-126) U/L Creatine Kinase (55-170) U/L Troponin I <0.012 (0.000-0.034) ng/mL NT-Pro-B Natriuret Pep 471 pg/mL Total Protein (6.3-8.2) g/dL Albumin (3.5-5.0) g/dL - EKG Data -: EKG Interpreted by Me (Sinus tachycardia rate of 117. We'll 122 QRS 78 QT since QTC 340/438 PVCs ) - Radiology Data Radiology results: report reviewed (I did review the imaging and report evidence of a right lower lobe pneumonia and some left-sided pneumonia), image reviewed Critical Care Time Critical Care Time: Yes Critical Care Time: 37 minutes of critical care time which includes initial presentation with history physical labs x-rays multiple reevaluation the patient. Discussed with the paramedics brought the patient discussed with the admitting physicians also review old charting documentation the above and admission orders Disposition Clinical Impression: Bilateral pneumonia, Acute exacerbation of chronic obstructive pulmonary disease, Acute respiratory distress syndrome in adult, Leukocytosis Disposition: ADMITTED IP TO THIS HOSP Condition: Fair Referrals: Raf Sanders DO [Primary Care Provider] - 1-2 days
[2019-06-07 13:38] LABS: Basophils % (A) 0 %; Eosinophils % (A) 0 %; HCT 39.2 % (39.0-53.0); Lymphocytes # (A) 0.4 k/uL (1.0-4.8); Lymphocytes % (A) 2 %; MCH 31.3 pg (25.0-35.0); MCHC 33.3 g/dL (31.0-37.0); MCV 93.9 fL (80.0-100.0); Mean Platelet Volume 8.1; Monocytes # (A) 0.3 k/uL (0-1.0); Monocytes % (A) 2 %; Neutrophils # (A) 15.5 k/uL (1.3-7.7); Neutrophils % (A) 95 %; Platelet Count 315 k/uL (150-450); RBC 4.17 m/uL (4.30-5.90); WBC 16.2 k/uL (3.8-10.6)
--- NOTE | 2019-06-07 13:41 | XR ---
EXAMINATION TYPE: XR chest 1V portable DATE OF EXAM: 06/07/2019 HISTORY: Dyspnea. REFERENCE: Previous study dated 03/05/2017. FINDINGS: There is a left shoulder arthroplasty in place. There is right basilar infiltrate. There are also patchy infiltrates throughout the right lung and at the left lung base. The heart is not enlarged. I cannot exclude a small right effusion. IMPRESSION: PATCHY BILATERAL PNEUMONIAS GREATER ON THE RIGHT THAN THE LEFT. I COULD NOT EXCLUDE A SMALL RIGHT EFF USION.
[2019-06-07 13:47] LABS: ALT 23 U/L (4-49); AST 41 U/L (17-59); African American GFR (CKD) >90 (>60 ml/min/1.73 sqM); Alkaline Phosphatase 86 U/L (38-126); Anion Gap 5 mmol/L; Blood Urea Nitrogen 36 mg/dL (9-20); Calcium 8.4 mg/dL (8.4-10.2); Carbon Dioxide 32 mmol/L (22-30); Chloride 97 mmol/L (98-107); Creatine Kinase 51 U/L (55-170); Glucose 217 mg/dL (74-99); Magnesium 2.7 mg/dL (1.6-2.3); Non-African American GFR(CKD) >90 (>60 ml/min/1.73 sqM); Potassium 4.1 mmol/L (3.5-5.1); Sodium 134 mmol/L (137-145); Total Bilirubin 0.5 mg/dL (0.2-1.3); Total Protein 5.9 g/dL (6.3-8.2)
[2019-06-07 13:49] LABS: INR 0.9 (<1.2); Partial Thromboplastin Time 25.3 sec (22.0-30.0); Prothrombin Time 9.3 sec (9.0-12.0)
[2019-06-07] MEDS ORDERED: cefTRIAXone IN SWFI 1,000 MG/10 ML SYRINGE IVP STA (14:07)
[2019-06-07] MEDS ORDERED: PNEUMONIA PROTOCOL UTILIZED 1 EACH MISC PO PRN (14:42)
[2019-06-07] MEDS ORDERED: AZITHROMYCIN 500 MG in SODIUM CHLORIDE 0.9% 250 ML IVPB STA (14:42)
[2019-06-07] MEDS: SODIUM CHLORIDE 0.9% 1,000 ML IV SCH (14:59)
[2019-06-07] MEDS ORDERED: ALBUTEROL NEBULIZED 2.5 MG/3 ML INHALATION SCH (16:00)
[2019-06-07 16:11] LABS: C Reactive Protein 384.7 mg/L (<10.0)
[2019-06-07] MEDS: methylPREDNISolone SOD SUCCI 40 MG/ML 1 ML VIAL IV SCH (21:07)
[2019-06-07] MEDS: ALBUTEROL HFA INHALER INHALATION SCH ×2 (21:44→21:48)
[2019-06-07] MEDS: SYMBICORT 160-4.5 MCG INHALER INHALATION SCH (21:48)
--- NOTE | 2019-06-07 23:49 | P.HPIM ---
History of Present Illness H&P Date: 06/07/19 Chief Complaint: Right-sided chest pain Patient is a 61-year-old male with a known history of advanced COPD and chronic hypoxic respiratory failure, obstructive sleep apnea, hyperlipidemia, chronic dysphagia and previous history of smoking and chronic left shoulder pain came to ER with complaints of shortness of breath and right-sided chest pain for the past 3 days. Patient does have severe COPD and is on lung transplant list. Patient currently on 5 L oxygen with another cannula at home. Denied any complaints of fever or chills. No nausea vomiting or diarrhea. No abdominal pain. Patient does have cough without much sputum production. Denied any recent travel or exposure to sick contacts. Patient was tachycardic and tachypneic on admission. EKG showed sinus tachycardia. Chest x-ray showed patchy bilateral pneumonia is greater on the right than left. WBC 16.2 Lymphocytes 0.6 and neutrophil count absolute 15.5 D-dimer 2.34 Bicarb 32 and lactic acid 2.4 LDH 1323, CRP 384 and influenza negative. Review of Systems Constitutional: Patient denies any fever or chills . No generalized weakness or weight loss. Abdomen: Patient denied nausea vomiting and diarrhea and abdominal pain. Cardiovascular: Patient denies any chest pain or short of breath no palpitations. Right-sided chest pain. Respiratory: Patient does have cough without much sputum production and shortness of breath Neurologic: Patient denied any numbness or tingling headache. Musculoskeletal: Patient denies any complaints of joint swelling or deformity. Skin: Negative Psychiatric: Negative Endocrine: No heat or cold intolerance. No recent weight gain. Genitourinary: No dysuria or hematuria. All other 14 point ROS negative except the above Past Medical History Past Medical History: COPD, Musculoskeletal Disorder, Sleep Apnea/CPAP/BIPAP Additional Past Medical History / Comment(s): Severe COPD, decreased BMI, TEREZA, hyperlipidemia, dysphagia, varicose veins, back and shoulder injury History of Any Multi-Drug Resistant Organisms: MRSA Date of last positivie culture/infection: approx 2007 MDRO Source:: back of left leg Past Surgical History: Orthopedic Surgery, Tonsillectomy Additional Past Surgical History / Comment(s): rt hand -little finger, left rotator cuff surgery, rhinoplasty x 2, right shoulder, right carpal tunnel rele ase, TOTAL LEFT SHOULDER ARTHROPLASTY Past Anesthesia/Blood Transfusion Reactions: No Reported Reaction Past Psychological History: No Psychological Hx Reported Smoking Status: Former smoker Past Alcohol Use History: None Reported Past Drug Use History: None Reported - Past Family History Mother Family Medical History: COPD Father Family Medical History: Deep Vein Thrombosis (DVT) Medications and Allergies Home Medications Medication Instructions Recorded Confirmed Type Budesonide-Formot 160-4.5 Mcg 2 puff INHALATION RT-BID 12/08/15 06/07/19 History [Symbicort 160-4.5 Mcg Inhaler] Tiotropium 18 Mcg/Puff [Spiriva] 1 cap INHALATION RT-DAILY 12/08/15 06/07/19 History Albuterol Sulfate [Proair Hfa] 2 puff INHALATION RT-Q6H PRN 09/02/17 06/07/19 History oxyCODONE HCL [oxyCODONE HCL (IR)] 10 mg PO QID PRN 09/02/17 06/07/19 History Amoxicillin/Potassium Clav 1 tab PO BID 06/07/19 06/07/19 History [Augmentin 875-125 Tablet] predniSONE See Taper PO DAILY 06/07/19 06/07/19 History Allergies Allergy/AdvReac Type Severity Reaction Status Date / Time No Known Allergies Allergy Verified 06/07/19 14:11 Physical Exam Vitals: Vital Signs Temp Pulse Pulse Resp BP BP Pulse Ox 06/07/19 20:00 18 06/07/19 16:00 106 H 18 06/07/19 15:00 98.2 F 113 H 106 H 18 121/82 100/65 97 06/07/19 14:30 98.0 F 111 H 28 H 142/85 95 06/07/19 14:13 102 H 28 H 96 06/07/19 13:29 30 H 06/07/19 13:16 112 H 30 H 97 06/07/19 13:11 97.8 F 115 H 30 H 143/80 97 Intake and Output 06/07/19 06/07/19 06/07/19 06:59 14:59 22:59 Other: Voiding Method Urinal # Voids 1 Weight 49.895 kg Results CBC & Chem 7: 06/07/19 13:21 06/07/19 13:21 Labs: Abnormal Lab Results - Last 24 Hours (Table) 06/07/19 06/07/19 06/07/19 Range/Units 13:21 13:21 13:21 WBC 16.2 H (3.8-10.6) k/uL RBC 4.17 L (4.30-5.90) m/uL Neutrophils # 15.5 H (1.3-7.7) k/uL Lymphocytes # 0.4 L (1.0-4.8) k/uL D-Dimer (<0.60) mg/L FEU Sodium 134 L (137-145) mmol/L Chloride 97 L (98-107) mmol/L Carbon Dioxide 32 H (22-30) mmol/L BUN 36 H (9-20) mg/dL Glucose 217 H (74-99) mg/dL Plasma Lactic Acid Cruz 2.6 H* (0.7-2.0) mmol/L Magnesium 2.7 H (1.6-2.3) mg/dL Lactate Dehydrogenase (313-618) U/L Creatine Kinase 51 L (55-170) U/L C-Reactive Protein (<10.0) mg/L Total Protein 5.9 L (6.3-8.2) g/dL Albumin 3.0 L (3.5-5.0) g/dL 06/07/19 06/07/19 Range/Units 13:21 13:21 WBC (3.8-10.6) k/uL RBC (4.30-5.90) m/uL Neutrophils # (1.3-7.7) k/uL Lymphocytes # (1.0-4.8) k/uL D-Dimer 2.34 H (<0.60) mg/L FEU Sodium (137-145) mmol/L Chloride (98-107) mmol/L Carbon Dioxide (22-30) mmol/L BUN (9-20) mg/dL Glucose (74-99) mg/dL Plasma Lactic Acid Cruz (0.7-2.0) mmol/L Magnesium (1.6-2.3) mg/dL Lactate Dehydrogenase 1323 H (313-618) U/L Creatine Kinase (55-170) U/L C-Reactive Protein 384.7 H (<10.0) mg/L Total Protein (6.3-8.2) g/dL Albumin (3.5-5.0) g/dL Thrombosis Risk Factor Assmnt - DVT/VTE Prophylaxis DVT/VTE Prophylaxis: Pharmacologic Prophylaxis ordered - Choose All That Apply Each Factor Represents 1 point: Abnormal pulmonary function (COPD) Each Risk Factor Represents 2 Points: Age 61-74 years Each Risk Factor Represents 3 Points: Family history of DVT/PE Thrombosis Risk Factor Assessment Total Risk Factor Score: 6 Thrombosis Risk Factor Assessment Level: High Risk Assessment and Plan Assessment: Bilateral pneumonia right greater than left Suspected Covid 19 viral infection Elevated d-dimer. Patient also have right-sided pleuritic chest pain and was tachycardic and tachypneic requiring more than usual oxygen on admission. Acute COPD exacerbation Advanced COPD on home oxygen at 5 L Mild to moderate routine calorie malnutrition Obstructive sleep apnea on CPAP at home Chronic left shoulder pain Previous history of smoking DVT prophylaxis area Plan: Patient will be continued on antibiotic the form of ceftriaxone and azithromycin. Continue with IV hydration and DuoNeb's and IV steroids. Oxygen therapy as needed. CTA chest was ordered. Pulmonary was consulted. Jonas 19 test was sent. Continue with Dopplers and contact precautions. Further recommendations based on the clinical course. Prognosis is guarded with advanced COPD. Time with Patient: Greater than 30
[2019-06-08] MEDS: ALBUTEROL HFA INHALER INHALATION SCH ×6 (00:34→20:38)
[2019-06-08] MEDS: SODIUM CHLORIDE 0.9% 1,000 ML IV SCH ×2 (01:08→16:12)
[2019-06-08] MEDS: HEPARIN SODIUM,PORCINE 5,000 UNIT/ML 1 ML VIAL SQ SCH ×3 (01:08→16:40)
[2019-06-08 06:52] LABS: Basophils % (A) 0 %; Eosinophils % (A) 0 %; HCT 40.4 % (39.0-53.0); HGB 12.6 gm/dL (13.0-17.5); Lymphocytes # (A) 0.2 k/uL (1.0-4.8); Lymphocytes % (A) 2 %; MCH 30.1 pg (25.0-35.0); MCHC 31.2 g/dL (31.0-37.0); MCV 96.4 fL (80.0-100.0); Mean Platelet Volume 7.9; Monocytes # (A) 0.4 k/uL (0-1.0); Monocytes % (A) 4 %; Neutrophils # (A) 10.4 k/uL (1.3-7.7); Neutrophils % (A) 93 %; Platelet Count 265 k/uL (150-450); RBC 4.19 m/uL (4.30-5.90); WBC 11.2 k/uL (3.8-10.6)
[2019-06-08 07:22] LABS: African American GFR (CKD) >90 (>60 ml/min/1.73 sqM); Anion Gap 5 mmol/L; Blood Urea Nitrogen 30 mg/dL (9-20); Carbon Dioxide 32 mmol/L (22-30); Chloride 102 mmol/L (98-107); Glucose 134 mg/dL (74-99); Non-African American GFR(CKD) >90 (>60 ml/min/1.73 sqM); Potassium 4.4 mmol/L (3.5-5.1); Sodium 139 mmol/L (137-145)
[2019-06-08] MEDS ORDERED: IPRATROPIUM-ALBUTEROL 3 ML NEB INHALATION SCH (08:00)
[2019-06-08] MEDS ORDERED: NON FORMULARY DRUG (Tiotropium 18 Mcg/Puff 1 CAP) INHALATION SCH (08:00)
[2019-06-08] MEDS: SYMBICORT 160-4.5 MCG INHALER INHALATION SCH ×3 (08:04→20:39)
--- NOTE | 2019-06-08 08:44 | XR ---
EXAMINATION TYPE: XR chest 2V DATE OF EXAM: 06/08/2019 COMPARISON: 06/07/2019 HISTORY: Pneumonia. Shortness of breath. Follow-up exam. TECHNIQUE: Frontal and lateral views of the chest are obtained. FINDINGS: Decreasing coalescence of the right lower lung reticular interstitial opacity with worseni ng in the right midlung and upper lung. Left lung remains overall moderate in comparison to the right with underlying emphysematous changes. Very trace right pleural effusion blunts the costophrenic ang le. No sizable left pleural effusion or pneumothorax. Cardiomediastinal silhouette is stable. Reverse left humeral arthroplasty seen. IMPRESSION: Improvement in the right basilar component of the multifocal interstitial right lung [place] with worsening in the midlung and upper lung components. Similar trace right pleural effusion. U nderlying emphysema.
[2019-06-08] MEDS ORDERED: predniSONE 10 MG TAB PO SCH (09:00)
[2019-06-08] MEDS: TIOTROPIUM 18 MCG/PUFF INHALER INHALATION SCH (09:10)
--- NOTE | 2019-06-08 09:23 | CT ---
EXAMINATION TYPE: CT chest angio for PE DATE OF EXAM: 06/08/2019 COMPARISON: Chest x-ray dated 06/08/2019 and PET/CT dated 08/10/2017 HISTORY: elevated d-dimer CT DLP: 254 mGycm. Automated Exposure Control for Dose Reduction was Utilized. CONTRAST: CTA scan of the thorax is performed with IV Contrast, patient injected with 100 mL of Isovue 370, pul monary embolism protocol. MIP Images are created on CT scanner and reviewed. FINDINGS: LUNGS: Extensive emphysematous changes of the lungs are seen. In comparison to the prior PET/CT of 08/10/2017 there is a new small right pleural effusion and multifocal interstitial and alveolar right low er lobe airspace disease. The previously seen spiculated pulmonary nodule in the right lower lobe on the prior PET/CT is obscured. Spiculated 4 mm nodule in the left upper lobe appears new from the prio r. Chronic scarring of the superior segment of the left lower lobe tethering the interlobar fissure. There is no pleural effusion or pneumothorax seen. The tracheobronchial tree is patent. MEDIASTINUM: There is satisfactory enhancement of the pulmonary artery and its branches, there is no CT evidence for pulmonary embolism. There are no greater than 1 cm hilar or mediastinal lymph nodes. Bolus timing allows for evaluation of the thoracic aorta. No thoracic aortic aneurysm or dissection is seen. No cardiomegaly or pericardial effusion is seen. OTHER: Left hepatic lobe cyst measures 1.3 cm. Smaller probable adjacent low attenuation cysts as see n on image 150 although this is subcentimeter and too small to accurately characterize. Mild multilev el degenerative change of the spine. IMPRESSION: 1. No evidence of pulmonary embolus. No evidence of thoracic aortic aneurysm or dissection. 2. New multifocal alveolar and interstitial airspace disease of the right lower lobe in comparison to the prior PET/CT of 08/20/2017. This obscures the known right lower lobe pulmonary nodule. The patien t is due for follow-up chest CT of that pulmonary nodule and this is recommended after resolution of symptoms. Additionally there is a new 4 mm left upper lobe pulmonary nodule in comparison to the prio r PET/CT.
--- NOTE | 2019-06-08 10:01 | P.CNPUL ---
History of Present Illness Consult date: 06/07/19 Reason for consult: dyspnea, cough, pneumonia History of present illness: This is a 64-year-old male patient with advanced COPD with an FEV1 of 27% of predicted. The patient has gold stage IV disease. The patient is on the chest with this for lung transportation at [facility]. The patient has been having worsening shortness of breath for almost a week. He was unable to come to our office. He underwent a telehealth evaluation through our office and the patient was given a course of Augmentin 875 mg twice a day for the next 10 days and a prednisone burst taper starting with 40 mg to be tapered by 10 mg every 4 days. Nevertheless, the patient got more short of breath and he end up coming into the emergency department today after receiving 2 days course of antibiotics. He progresses doctor worse and at the time of arrival he was on 5 L of oxygen by nasal cannula. He denied having any fever or chills. No nausea or vomiting. Indeed he had a white cell count of 16.2. His lactic acid level was 2.6. Influenza screen came back negative. Chest x-ray showed patchy bilateral pneumonia as right more than left with possibly a small right-sided pleural effusion. For that reason, the patient was started on Rocephin and Zithromax and the patient was hospitalized for an acute bilateral pneumonia and COPD exacerbation. He is also being evaluated for covid 19 and the patient has been placed in droplet isolation for now. Note that the patient's COPD is quite extensive and severe and the patient limited and accommodation Spiriva and Symbicort on outpatient basis and addition to pro-air rescue inhaler on an as-ne eded basis. No frequent hospitalization for COPD exacerbation. He is an ex- smoker. He is currently on 5 L of oxygen by nasal cannula. His tachycardia is improved and his heart rate is down to 102. He is short of breath and breathing is labored. His tachypnea is also improved and is currently breathing 28 times / minutes Review of Systems Constitutional Constitutional: no fever, no night sweats, no significant weight gain, weight loss (10 lbs), exercise intolerance Eyes Eyes: no dry eyes, no vision change, no irritation ENMT Ears: no difficulty hearing, no ear pain Nose: no frequent nosebleeds, no nose problems, no sinus problems Mouth/Throat: no sore throat, no bleeding gums, no mouth ulcers, no teeth problems, snoring, dry mouth Cardiovascular Cardiovascular: no chest pain, no arm pain on exertion, no shortness of breath when lying down, no palpitations, no known heart murmur, shortness of breath when walking Respiratory Respiratory: no coughing up blood, no sleep apnea, cough, wheezing, shortness of breath Gastrointestinal Gastrointestinal: no abdominal pain, no nausea, no vomiting, no constipation, normal appetite, no diarrhea, not vomiting blood, no dyspepsia, no GERD Genitourinary Genitourinary: no incontinence, no difficulty urinating, no hematuria, no increased frequency Musculoskeletal Musculoskeletal: no muscle aches, no muscle weakness, no arthralgias/joint pain, no back pain, no swelling in the extremities Integumentary Skin: no abnormal mole, no jaundice, no rashes, no laceration Neurologic Neurologic: no loss of consciousness, no weakness, no numbness, no seizures, no dizziness, no migraines, no headaches, no tremor Psychiatric Psych: no depression, no sleep disturbances, feeling safe in a relationship, no alcohol abuse, no anxiety, no hallucinations, no suicidal thoughts Endocrine Endocrine: fatigue Hematologic/Lymphatic Hematologic/Lymphatic no swollen glands, no bruising, no excessive bleeding Allergic/Immunologic Past Medical History Past Medical History: COPD, Musculoskeletal Disorder, Sleep Apnea/CPAP/BIPAP Additional Past Medical History / Comment(s): Severe COPD, decreased BMI, TEREZA, hyperlipidemia, dysphagia, varicose veins, back and shoulder injury History of Any Multi-Drug Resistant Organisms: MRSA Date of last positivie culture/infection: approx 2007 MDRO Source:: back of left leg Past Surgical History: Orthopedic Surgery, Tonsillectomy Additional Past Surgical History / Comment(s): rt hand -little finger, left rotator cuff surgery, rhinoplasty x 2, right shoulder, right carpal tunnel release, TOTAL LEFT SHOULDER ARTHROPLASTY Past Anesthesia/Blood Transfusion Reactions: No Reported Reaction Past Psychological History: No Psychological Hx Reported Smoking Status: Former smoker Past Alcohol Use History: None Reported Past Drug Use History: None Reported - Past Family History Mother Family Medical History: COPD Father Family Medical History: Deep Vein Thrombosis (DVT) Medications and Allergies Home Medications Medication Instructions Recorded Confirmed Type Budesonide-Formot 160-4.5 Mcg 2 puff INHALATION RT-BID 12/08/15 06/07/19 History [Symbicort 160-4.5 Mcg Inhaler] Tiotropium 18 Mcg/Puff [Spiriva] 1 cap INHALATION RT-DAILY 12/08/15 06/07/19 History Albuterol Sulfate [Proair Hfa] 2 puff INHALATION RT-Q6H PRN 09/02/17 06/07/19 History oxyCODONE HCL [oxyCODONE HCL (IR)] 10 mg PO QID PRN 09/02/17 06/07/19 History Amoxicillin/Potassium Clav 1 tab PO BID 06/07/19 06/07/19 History [Augmentin 875-125 Tablet] predniSONE See Taper PO DAILY 06/07/19 06/07/19 History Allergies Allergy/AdvReac Type Severity Reaction Status Date / Time No Known Allergies Allergy Verified 06/07/19 14:11 Physical Exam Vitals: Vital Signs Temp Pulse Resp BP Pulse Ox 06/07/19 14:13 102 H 28 H 96 06/07/19 13:29 30 H 06/07/19 13:16 112 H 30 H 97 06/07/19 13:11 97.8 F 115 H 30 H 143/80 97 Intake and Output 06/07/19 06/07/19 06/07/19 06:59 14:59 22:59 Other: Weight 49.895 kg General Appearance no diaphoresis, no respiratory distress, speech not interru pted by breaths, no dyspnea, no pallor, cachectic, appears ill HEENT no pursed lip breathing, no jugular venous distention, no mucous membrane cyanosis, no perioral cyanosis, mallampati classification: class 1 Chest no retractions, no sternocleidomastoid muscle contractions, no supraclavicular retractions, no intercostal retractions, no decreased air movement, no rhonchi, no hyperinflation, (normal) adventitious sounds: rales / crackles: bilaterally: midlung tai, barrel chest, prolonged expiratory wheezing, decreased air movement Heart no right ventricular heave, no distant heart sounds, no s3 gallop, (normal) jugular vein: jugular venous distention: by 0cm, (normal) jugular vein GI bowel sounds: hyperactive (borborygmi), bowel sounds: diminished or absent Extremities no cyanosis, no clubbing, no edema (right toe infection recovered and he has a toenail fungal infection) Neurologic no decreased mental status, no somnolence, no confusion Assisstive Devices: ambulates with no assitive devices Gait and Mobility: gait WNL, full weight bearing Skin General Appearance normal, (normal) normal except as noted Results - Laboratory Findings CBC and BMP: 06/07/19 13:21 06/07/19 13:21 PT/INR, D-dimer PT 9.3 sec (9.0-12.0) 06/07/19 13:21 INR 0.9 (<1.2) 06/07/19 13:21 Abnormal lab findings: Abnormal Labs 06/07/19 06/07/19 06/07/19 13:21 13:21 13:21 WBC 16.2 H RBC 4.17 L Neutrophils # 15.5 H Lymphocytes # 0.4 L Sodium 134 L Chloride 97 L Carbon Dioxide 32 H BUN 36 H Glucose 217 H Plasma Lactic Acid Cruz 2.6 H* Magnesium 2.7 H Creatine Kinase 51 L Total Protein 5.9 L Albumin 3.0 L - Diagnostic Findings Chest x-ray: image reviewed Assessment and Plan Plan: 1 acute pneumonia (bilateral) right more than left, was being treated on outpatient basis with Augmentin and prednisone burst taper, hospitalized for the same. I'll see been a worsening shortness of breath. This seems to be more so of a bacterial infection. Covid 19 infection needs to be also ruled out. The patient has some leukocytosis and neutrophilia and left shift and this supports bacterial infection and the patient needs to be covered with broad-spectrum antibiotics for now. We'll check sputum Gram stain and culture. We'll check Legionella urine antigen. We'll check Covid 19 status. 2 severe COPD with a baseline FEV1 of 27% of predicted 3 acute on chronic hypoxic respiratory failure 4 Decreased Body mass index along with chronic cachexia related to advanced COPD 5 Mild lactic acidosis 6 lung transplant candidate and the patient has been listed at [facility] 7 leukocytosis secondary to above Plan Cover this patient with broad-spectrum antibiotics utilizing a combination of Rocephin and Zithromax Droplet isolation Covid 19 evaluation IV Solu-Medrol 40 mg every 12 hours We'll continue to follow.
[2019-06-08] MEDS: methylPREDNISolone SOD SUCCI 40 MG/ML 1 ML VIAL IV SCH ×2 (10:09→21:13)
[2019-06-08 10:44] VITALS: BMI 17.2
[2019-06-08 13:01] LABS: Ferritin 201.1 ng/mL (22.0-322.0)
--- NOTE | 2019-06-08 13:35 | P.PN ---
Subjective Progress Note Date: 06/08/19 Principal diagnosis: Dyspnea, cough, pneumonia This is a 64-year-old male patient with advanced COPD with an FEV1 of 27% of predicted. The patient has gold stage IV disease. The patient is on the chest with this for lung transportation at [facility]. The patient has been having worsening shortness of breath for almost a week. He was unable to come to our office. He underwent a telehealth evaluation through our office and the patient was given a course of Augmentin 875 mg twice a day for the next 10 days and a prednisone burst taper starting with 40 mg to be tapered by 10 mg every 4 days. Nevertheless, the patient got more short of breath and he end up coming into the emergency department today after receiving 2 days course of antibiotics. He progresses doctor worse and at the time of arrival he was on 5 L of oxygen by nasal cannula. He denied having any fever or chills. No nausea or vomiting. Indeed he had a white cell count of 16.2. His lactic acid level was 2.6. Influenza screen came back negative. Chest x-ray showed patchy bilateral pneumonia as right more than left with possibly a small right-sided pleural effusion. For that reason, the patient was started on Rocephin and Zithromax and the patient was hospitalized for an acute bilateral pneumonia and COPD exacerbation. He is also being evaluated for covid 19 and the patient has been placed in droplet isolation for now. Note that the patient's COPD is quite extensive and severe and the patient limited and accommodation Spiriva and Symbicort on outpatient basis and addition to pro-air rescue inhaler on an as- needed basis. No frequent hospitalization for COPD exacerbation. He is an ex- smoker. He is currently on 5 L of oxygen by nasal cannula. His tachycardia is improved and his heart rate is down to 102. He is short of breath and breathing is labored. His tachypnea is also improved and is currently breathing 28 times / minutes On 06/08/2019 patient seen in follow-up on the general medical floor. He is awake and alert, is currently on 5 L of oxygen with a pulse ox of 96%, patient normally wears 5 L of oxygen at home for history of chronic hypoxemic respira tory failure related to COPD/emphysema. Patient is afebrile. His Covid 19 testing is still pending, patient is currently on Zithromax, Rocephin, IV steroids, Symbicort and Spiriva. Today's chest x-ray shows improvement in the right basilar component of multifocal interstitial right lung opacity. CTA chest showed no evidence of pulmonary embolism, and new multifocal alveolar and interstitial airspace disease of the right lower lobe. And new 4 mm left upper lobe pulmonary nodule. Sputum Gram stain is positive for many polymorphonuclear leukocytes, many yeast, final culture is pending. Patient states he felt slightly better on today's exam Objective - Vital Signs Vital signs: Vital Signs Temp 98.3 F 06/08/19 07:00 Pulse 98 06/08/19 11:21 Resp 19 06/08/19 11:21 BP 125/75 06/08/19 11:21 Pulse Ox 100 06/08/19 11:21 Intake & Output 06/07/19 06/08/19 06/08/19 18:59 06:59 18:59 Intake Total 900 Output Total 200 Balance 700 Weight 49.895 kg 49.895 kg Intake: Intake, IV Titration 900 Amount Sodium Chloride 0.9% 1, 900 000 ml @ 75 mls/hr IV . [id number] [facility] Rx#:[id number] Output: Urine 200 Other: Voiding Method Urinal # Voids 1 - Exam GENERAL EXAM: Alert, very pleasant, 63-year-old white male, on 5 L of oxygen with pulse ox of 96% comfortable in no apparent distress. HEAD: Normocephalic/atraumatic. EYES: Normal reaction of pupils, equal size. Conjunctiva pink, sclera white. NOSE: Clear with pink turbinates. THROAT: No erythema or exudates. NECK: No masses, no JVD, no thyroid enlargement, no adenopathy. CHEST: No chest wall deformity. Symmetrical expansion. LUNGS: Equal air entry with no crackles, wheeze, rhonchi or dullness. CVS: Regular rate and rhythm, normal S1 and S2, no gallops, no murmurs, no rubs ABDOMEN: Soft, nontender. No hepatosplenomegaly, normal bowel sounds, no guarding or rigidity. EXTREMITIES: No clubbing, no edema, no cyanosis, 2+ pulses and upper and lower extremities. MUSCULOSKELETAL: Muscle strength and tone normal. SPINE: No scoliosis or deformity SKIN: No rashes CENTRAL NERVOUS SYSTEM: Alert and oriented -3. No focal deficits, tone is normal in all 4 extremities. PSYCHIATRIC: Alert and oriented -3. Appropriate affect. Intact judgment and insight. - Labs CBC & Chem 7: 06/08/19 06:14 06/08/19 06:14 Labs: Abnormal Lab Results - Last 24 Hours (Table) 06/07/19 06/07/19 06/07/19 Range/Units 13:21 13:21 13:21 WBC 16.2 H (3.8-10.6) k/uL RBC 4.17 L (4.30-5.90) m/uL Hgb (13.0-17.5) gm/dL Neutrophils # 15.5 H (1.3-7.7) k/uL Lymphocytes # 0.4 L (1.0-4.8) k/uL D-Dimer (<0.60) mg/L FEU Sodium 134 L (137-145) mmol/L Chloride 97 L (98-107) mmol/L Carbon Dioxide 32 H (22-30) mmol/L BUN 36 H (9-20) mg/dL Glucose 217 H (74-99) mg/dL Plasma Lactic Acid Cruz 2.6 H* (0.7-2.0) mmol/L Calcium (8.4-10.2) mg/dL Magnesium 2.7 H (1.6-2.3) mg/dL Lactate Dehydrogenase (313-618) U/L Creatine Kinase 51 L (55-170) U/L C-Reactive Protein (<10.0) mg/L Total Protein 5.9 L (6.3-8.2) g/dL Albumin 3.0 L (3.5-5.0) g/dL Procalcitonin (0.02-0.09) ng/mL 06/07/19 06/07/19 06/07/19 Range/Units 13:21 13:21 13:21 WBC (3.8-10.6) k/uL RBC (4.30-5.90) m/uL Hgb (13.0-17.5) gm/dL Neutrophils # (1.3-7.7) k/uL Lymphocytes # (1.0-4.8) k/uL D-Dimer 2.34 H (<0.60) mg/L FEU Sodium (137-145) mmol/L Chloride (98-107) mmol/L Carbon Dioxide (22-30) mmol/L BUN (9-20) mg/dL Glucose (74-99) mg/dL Plasma Lactic Acid Cruz (0.7-2.0) mmol/L Calcium (8.4-10.2) mg/dL Magnesium (1.6-2.3) mg/dL Lactate Dehydrogenase 1323 H (313-618) U/L Creatine Kinase (55-170) U/L C-Reactive Protein 384.7 H (<10.0) mg/L Total Protein (6.3-8.2) g/dL Albumin (3.5-5.0) g/dL Procalcitonin 14.54 H (0.02-0.09) ng/mL 06/08/19 06/08/19 Range/Units 06:14 06:14 WBC 11.2 H (3.8-10.6) k/uL RBC 4.19 L (4.30-5.90) m/uL Hgb 12.6 L (13.0-17.5) gm/dL Neutrophils # 10.4 H (1.3-7.7) k/uL Lymphocytes # 0.2 L (1.0-4.8) k/uL D-Dimer (<0.60) mg/L FEU Sodium (137-145) mmol/L Chloride (98-107) mmol/L Carbon Dioxide 32 H (22-30) mmol/L BUN 30 H (9-20) mg/dL Glucose 134 H (74-99) mg/dL Plasma Lactic Acid Cruz (0.7-2.0) mmol/L Calcium 8.0 L (8.4-10.2) mg/dL Magnesium (1.6-2.3) mg/dL Lactate Dehydrogenase (313-618) U/L Creatine Kinase (55-170) U/L C-Reactive Protein (<10.0) mg/L Total Protein (6.3-8.2) g/dL Albumin (3.5-5.0) g/dL Procalcitonin (0.02-0.09) ng/mL Microbiology - Last 24 Hours (Table) 06/07/19 19:30 Gram Stain - Preliminary Sputum Sputum Culture - Preliminary Assessment and Plan Plan: Assessment: #1. Acute bilateral pneumonia, CTA chest showing multifocal alveolar and interstitial airspace disease of the right lower lobe, and a new 4 mm left upper lobe pulmonary nodule compared to the last PET/computed tomography scan. Possibly of Covid 19 infection is being considered, patient has been tested and the results are pending. Elevated pro-calcitonin suggesting bacterial infection #2. Severe COPD with a baseline FEV1 of 27% of predicted with chronic hypoxemic respiratory failure #3. Acute and chronic hypoxic respiratory failure #4. Decreased body mass index, chronic cachexia related to advanced COPD #5. Mild lactic acidosis, improved #6. Lung transplant candidate, patient is listed at the [facility] #7. Leukocytosis secondary to the above #8. Elevated d-dimer, CTA chest was negative for any evidence of pulmonary embolism #9. Elevated CRP, and LDH , COVID 19 infection is being ruled out Plan: Continue current antibiotics, today's chest x-ray shows improvement in the appearance of right basilar multifocal interstitial and alveolar opacity. CTA chest was negative for any evidence of pulmonary embolism. COVID 19 testing is pending, pro-calcitonin came back elevated suggesting presence of bacterial pneumonia. Continue IV steroids, and MDI inhalers. Oxygen level is at its baseline, patient normally wears 5 L of oxygen, patient has been afebrile. Con juana to closely follow clinical course. I performed a history & physical examination of the patient and discussed their management with my nurse practitioner, Monserrat Torres. I reviewed the nurse lópez grimaldo's note and agree with the documented findings and plan of care. Lung sounds are positive for diminished breath sounds bilaterally The findings and the impression was discussed with the patient. I attest to the documentation by the nurse practitioner. Time with Patient: Less than 30
--- NOTE | 2019-06-08 14:35 | P.PN ---
Subjective Progress Note Date: 06/08/19 Principal diagnosis: Patient is a 61-year-old male with a known history of advanced COPD and chronic hypoxic respiratory failure, obstructive sleep apnea, hyperlipidemia, chronic d ysphagia and previous history of smoking and chronic left shoulder pain came to ER with complaints of shortness of breath and right-sided chest pain for the past 3 days. Patient does have severe COPD and is on lung transplant list. Patient currently on 5 L oxygen with another cannula at home. Denied any complaints of fever or chills. No nausea vomiting or diarrhea. No abdominal pain. Patient does have cough without much sputum production. Denied any recent travel or exposure to sick contacts. Patient was tachycardic and tachypneic on admission. EKG showed sinus tachycardia. Chest x-ray showed patchy bilateral pneumonia is greater on the right than left. WBC 16.2 Lymphocytes 0.6 and neutrophil count absolute 15.5 D-dimer 2.34 Bicarb 32 and lactic acid 2.4 LDH 1323, CRP 384 and influenza negative. 06/08/2019 Patient is seen and evaluated in follow-up today and continues to be quite dyspneic with exertion with a lot of coughing. Patient states he has some extreme acid reflux and some dysphasia. Protonix was ordered and patient is currently on a dysphagia 3 chopped diet and tolerating. Patient normally wears 5 L of oxygen and is maintaining that. Patient remains on IV steroids along with bronchodilators. Patient continues on antibiotics in the form of IV ceftriaxone along with oral Zithromax and will continue at this time. Patient did have influenza testing which was negative and is currently being tested for Covid 19 from the ER and is pending at this time. Pulmonary is following. Patient's white count is trending down at 11.2. Current sodium today is 139 and potassium is 4.4. Patient underwent a CTA today showing no evidence of PE or thoracic aneurysm or dissection along with a new multifocal alveolar and interstitial airspace disease of the right lower lobe in comparison to his previous PET computed tomography scan in 2018. There is also additionally a new 4 mm left upper lobe pulmonary nodule noted on the CT. Objective - Vital Signs Vital signs: Vital Signs Temp 98.3 F 06/08/19 07:00 Pulse 98 06/08/19 11:21 Resp 19 06/08/19 11:21 BP 125/75 06/08/19 11:21 Pulse Ox 100 06/08/19 11:21 Intake & Output 06/07/19 06/08/19 06/08/19 18:59 06:59 18:59 Intake Total 900 Output Total 200 700 Balance 700 -700 Weight 49.895 kg 49.895 kg Intake: Intake, IV Titration 900 Amount Sodium Chloride 0.9% 1, 900 000 ml @ 75 mls/hr IV . [id number] [facility] Rx#:[id number] Output: Urine 200 700 Other: Voiding Method Urinal # Voids 1 - Exam Bilateral pneumonia right greater than left Suspected Covid 19 viral infection Elevated d-dimer. Patient also have right-sided pleuritic chest pain and was tachycardic and tachypneic requiring more than usual oxygen on admission. Acute COPD exacerbation Advanced COPD on home oxygen at 5 L Mild protein calorie malnutrition Obstructive sleep apnea on CPAP at home Chronic left shoulder pain Previous history of smoking DVT prophylaxis subcu heparin Plan: Patient will be continued on antibiotic the form of ceftriaxone and azithromycin. Continue with IV hydration and bronchodilators and IV steroids. Oxygen therapy as needed. CTA of the chest was done and negative for pulmonary embolisms as mentioned previously. Pulmonary following. Covid 19 test was sent and remains pending. Continue with droplet and contact precautions. Further recommendations based on the clinical course. Prognosis is guarded with advanced COPD. - Labs CBC & Chem 7: 06/08/19 06:14 06/08/19 06:14 Labs: Abnormal Lab Results - Last 24 Hours (Table) 06/07/19 06/07/19 06/07/19 Range/Units 13:21 13:21 13:21 WBC (3.8-10.6) k/uL RBC (4.30-5.90) m/uL Hgb (13.0-17.5) gm/dL Neutrophils # (1.3-7.7) k/uL Lymphocytes # (1.0-4.8) k/uL D-Dimer 2.34 H (<0.60) mg/L FEU Carbon Dioxide (22-30) mmol/L BUN (9-20) mg/dL Glucose (74-99) mg/dL Calcium (8.4-10.2) mg/dL Lactate Dehydrogenase 1323 H (313-618) U/L C-Reactive Protein 384.7 H (<10.0) mg/L Procalcitonin 14.54 H (0.02-0.09) ng/mL 06/08/19 06/08/19 Range/Units 06:14 06:14 WBC 11.2 H (3.8-10.6) k/uL RBC 4.19 L (4.30-5.90) m/uL Hgb 12.6 L (13.0-17.5) gm/dL Neutrophils # 10.4 H (1.3-7.7) k/uL Lymphocytes # 0.2 L (1.0-4.8) k/uL D-Dimer (<0.60) mg/L FEU Carbon Dioxide 32 H (22-30) mmol/L BUN 30 H (9-20) mg/dL Glucose 134 H (74-99) mg/dL Calcium 8.0 L (8.4-10.2) mg/dL Lactate Dehydrogenase (313-618) U/L C-Reactive Protein (<10.0) mg/L Procalcitonin (0.02-0.09) ng/mL Microbiology - Last 24 Hours (Table) 06/07/19 19:30 Gram Stain - Preliminary Sputum Sputum Culture - Preliminary
[2019-06-08] MEDS: AZITHROMYCIN 500 MG TAB PO SCH (16:40)
[2019-06-08] MEDS: PANTOPRAZOLE 40 MG TABLET PO SCH (16:40)
[2019-06-09] MEDS: HEPARIN SODIUM,PORCINE 5,000 UNIT/ML 1 ML VIAL SQ SCH ×4 (00:25→23:01)
[2019-06-09] MEDS: ALBUTEROL HFA INHALER INHALATION SCH ×7 (00:33→23:31)
[2019-06-09] MEDS: SODIUM CHLORIDE 0.9% 1,000 ML IV SCH ×3 (03:54→20:25)
[2019-06-09] MEDS: TIOTROPIUM 18 MCG/PUFF INHALER INHALATION SCH (07:24)
[2019-06-09] MEDS: SYMBICORT 160-4.5 MCG INHALER INHALATION SCH ×2 (07:24→20:37)
[2019-06-09] MEDS: AZITHROMYCIN 500 MG TAB PO SCH (07:55)
[2019-06-09] MEDS: PANTOPRAZOLE 40 MG TABLET PO SCH ×2 (07:55→16:58)
[2019-06-09] MEDS: methylPREDNISolone SOD SUCCI 40 MG/ML 1 ML VIAL IV SCH ×2 (07:55→20:25)
--- NOTE | 2019-06-09 08:21 | XR ---
EXAMINATION TYPE: XR chest 1V portable DATE OF EXAM: 06/09/2019 Comparison: 06/08/2019 Clinical History: 63 year-old male shortness of breath Findings: Heart normal size. Aorta within normal limits. Hyperinflation. Patchy airspace opacity right mid and lower lung on a background of emphysematous change. Trace right pleural effusion difficult to exclude . Reverse left total shoulder arthroplasty. Impression: COPD with superimposed infiltrate in right mid and lower lung, suspect pneumonia. Clinically correlat e. Possible trace right effusion.
[2019-06-09 08:43] LABS: C Reactive Protein 129.1 mg/L (<10.0)
--- NOTE | 2019-06-09 10:39 | CDI ---
Documentation Clarification Form Date: 06/09/2019 09:51:06 AM From: Ileana Fuller RN, CCDS Admit Date: 06/07/2019 02:43:00 PM Patient Name: Jamie Callejas Visit Number: [id number] ATTENTION: The Clinical Documentation Specialists (CDI) and [facility] Coding Staff appreciate your assistance in clarifying documentation. Please respond to the clarification below the line at the bottom and electronically sign. The CDI & [facility] Coding staff will review the response and follow-up if needed. Please note: Queries are made part of the Legal Health Record. If you have any questions, please contact the author of this message via ITS. Dr. Diego Watts Suspected Covid 19 viral infection is documented in the Attending H&P and Progress Notes in the presence of a negative Coronavirus PCR Patient history/risk factors: Former smoker, COPD on lung transplant list, TEREZA on BIPAP, chronic hypoxic respiratory failure on 5L NC at home Clinical Indicators: Patient presented with c/o SOB and right sided chest pain. 06/07 H&P: Bilateral pneumonia right greater than left. Suspected Covid 19 viral infection Elevated d-dimer. Patient also have right-sided pleuritic chest pain and was tachycardic and tachypneic requiring more than usual oxygen on admission." CXR: "COPD with superimposed infiltrate in right mid and lower lung, suspect pneumonia. Clinically correlate. Possible trace right effusion." 06/06-06/07 Labs: WBC 16.2/11.2, neutrophils 15.4/10.4, plasma 2.6/1.5, LDH 1323/12.1, CRP 384.7, procalitonin ABGs: not done 06/06 Viral Panel: Influenza A&B negative, Coronavirus (PCR) not detected 06/06 1311 Admission V/S: Temp 97.8, HR 115, RR 30, and B/P 143/80, Spo2 97% 6 l NC Treatment: 06/06 Pulmonary Consult: "I'll see been a worsening shortness of breath. This seems to be more so of a bacterial infection. Covid 19 infection needs to be also ruled out. The patient has some leukocytosis and neutrophilia and left shift and this supports bacterial infection and the patient needs to be covered with broad-spectrum antibiotics for now. We'll check sputum Gram stain and culture. We'll check Legionella urine antigen. Well check Covid 19 status." 4/5 Zithromax 500 mg IVPB x 1 dose followed by 500 mg PO QD 4/5 Rocephin 1 gm IVPB Q 24 hrs 4/5 IV Solumedrol 125mg, tapering dose In order to capture the severity of condition, please clarify if the above treatment/clinical indicators signify: COVID-19 ruled out False negative, treating for COVID-19 based on these clinical indicators Other, please specify Unable to determine (Last Form Revision: May 2019) COVID-19 ruled out MTDD
--- NOTE | 2019-06-09 13:22 | P.PN ---
Subjective Progress Note Date: 06/09/19 Principal diagnosis: Dyspnea, cough, pneumonia This is a 64-year-old male patient with advanced COPD with an FEV1 of 27% of predicted. The patient has gold stage IV disease. The patient is on the chest with this for lung transportation at [facility]. The patient has been having worsening shortness of breath for almost a week. He was unable to come to our office. He underwent a telehealth evaluation through our office and the patient was given a course of Augmentin 875 mg twice a day for the next 10 days and a prednisone burst taper starting with 40 mg to be tapered by 10 mg every 4 days. Nevertheless, the patient got more short of breath and he end up coming into the emergency department today after receiving 2 days course of antibiotics. He progresses doctor worse and at the time of arrival he was on 5 L of oxygen by nasal cannula. He denied having any fever or chills. No nausea or vomiting. Indeed he had a white cell count of 16.2. His lactic acid level was 2.6. Influenza screen came back negative. Chest x-ray showed patchy bilateral pneumonia as right more than left with possibly a small right-sided pleural effusion. For that reason, the patient was started on Rocephin and Zithromax and the patient was hospitalized for an acute bilateral pneumonia and COPD exacerbation. He is also being evaluated for covid 19 and the patient has been placed in droplet isolation for now. Note that the patient's COPD is quite extensive and severe and the patient limited and accommodation Spiriva and Symbicort on outpatient basis and addition to pro-air rescue inhaler on an as- needed basis. No frequent hospitalization for COPD exacerbation. He is an ex- smoker. He is currently on 5 L of oxygen by nasal cannula. His tachycardia is improved and his heart rate is down to 102. He is short of breath and breathing is labored. His tachypnea is also improved and is currently breathing 28 times / minutes On 06/08/2019 patient seen in follow-up on the general medical floor. He is awake and alert, is currently on 5 L of oxygen with a pulse ox of 96%, patient normally wears 5 L of oxygen at home for history of chronic hypoxemic respira tory failure related to COPD/emphysema. Patient is afebrile. His Covid 19 testing is still pending, patient is currently on Zithromax, Rocephin, IV steroids, Symbicort and Spiriva. Today's chest x-ray shows improvement in the right basilar component of multifocal interstitial right lung opacity. CTA chest showed no evidence of pulmonary embolism, and new multifocal alveolar and interstitial airspace disease of the right lower lobe. And new 4 mm left upper lobe pulmonary nodule. Sputum Gram stain is positive for many polymorphonuclear leukocytes, many yeast, final culture is pending. Patient states he felt slightly better on today's exam On 06/09/2019 patient seen in follow-up general medical floor. He is awake and alert, no acute distress, he is currently on 3 L of oxygen with a pulse ox of 99 100%, he has been afebrile. His Covid 19 status is negative, influenza was negative. Today's labs have been reviewed, d-dimer is mildly elevated at 0.86, white blood cell count of 11.2, hemoglobin is 12.6, electrolytes are within normal limits with exception of CO2 which is at 32, B1 is 30 creatinine 0.68, CRP is 129, ferritin level is currently pending, patient remains in droplet isolation precautions per the new policy that states ruled out patient's to remain in droplet isolation or precaution of false-negative testing. Remains on Rocephin and Zithromax, and IV Solu-Medrol, patient is on Symbicort, and Spiriva MDI inhalers. Objective - Vital Signs Vital signs: Vital Signs Temp 97.7 F 06/09/19 06:48 Pulse 92 06/09/19 06:48 Resp 19 06/09/19 02:19 BP 106/65 06/09/19 06:48 Pulse Ox 99 06/09/19 06:48 Intake & Output 06/08/19 06/09/19 06/09/19 18:59 06:59 18:59 Intake Total 780 Output Total 700 900 Balance -700 -120 Weight 49.895 kg Intake: Oral 780 Output: Urine 700 900 Other: Voiding Method Urinal Urinal # Voids 1 - Exam GENERAL EXAM: Alert, very pleasant, 63-year-old white male, on 5 L of oxygen with pulse ox of 96% comfortable in no apparent distress. HEAD: Normocephalic/atraumatic. EYES: Normal reaction of pupils, equal size. Conjunctiva pink, sclera white. NOSE: Clear with pink turbinates. THROAT: No erythema or exudates. NECK: No masses, no JVD, no thyroid enlargement, no adenopathy. CHEST: No chest wall deformity. Symmetrical expansion. LUNGS: Equal air entry with no crackles, wheeze, rhonchi or dullness. CVS: Regular rate and rhythm, normal S1 and S2, no gallops, no murmurs, no rubs ABDOMEN: Soft, nontender. No hepatosplenomegaly, normal bowel sounds, no guar ding or rigidity. EXTREMITIES: No clubbing, no edema, no cyanosis, 2+ pulses and upper and lower extremities. MUSCULOSKELETAL: Muscle strength and tone normal. SPINE: No scoliosis or deformity SKIN: No rashes CENTRAL NERVOUS SYSTEM: Alert and oriented -3. No focal deficits, tone is normal in all 4 extremities. PSYCHIATRIC: Alert and oriented -3. Appropriate affect. Intact judgment and insight. - Labs CBC & Chem 7: 06/08/19 06:14 06/08/19 06:14 Labs: Abnormal Lab Results - Last 24 Hours (Table) 06/09/19 06/09/19 Range/Units 05:58 05:58 D-Dimer 0.86 H (<0.60) mg/L FEU C-Reactive Protein 129.1 H (<10.0) mg/L Microbiology - Last 24 Hours (Table) 06/07/19 13:21 Blood Culture - Preliminary Blood No Growth after 24 hours Assessment and Plan Plan: Assessment: #1. Acute bilateral pneumonia, CTA chest showing multifocal alveolar and interstitial airspace disease of the right lower lobe, and a new 4 mm left upper lobe pulmonary nodule compared to the last PET/computed tomography scan. Possibly of Covid 19 infection is being considered, patient has been tested and the results are negative. Elevated pro-calcitonin suggesting bacterial infection #2. Severe COPD with a baseline FEV1 of 27% of predicted with chronic hypoxemic respiratory failure #3. Acute and chronic hypoxic respiratory failure #4. Decreased body mass index, chronic cachexia related to advanced COPD #5. Mild lactic acidosis, improved #6. Lung transplant candidate, patient is listed at the [facility] #7. Leukocytosis secondary to the above #8. Elevated d-dimer, CTA chest was negative for any evidence of pulmonary embolism #9. Elevated CRP, and LDH , COVID 19 infection is being ruled out Plan: Continue current antibiotics, will await results of the sputum culture, patient has been afebrile, today's chest x-ray shows infiltrate in the right mid and lower lung, clinically stable, improving, no fever or chills, FiO2 is down to 2 L, from pulmonary perspective patient can be considered for discharge home in the next 24-48 hours I performed a history & physical examination of the patient and discussed their management with my nurse practitioner, Monserrat Torres. I reviewed the nurse practitioner's note and agree with the documented findings and plan of care. Lung sounds are positive for diminished breath sounds bilaterally The findings and the impression was discussed with the patient. I attest to the documentation by the nurse practitioner. Time with Patient: Less than 30
--- NOTE | 2019-06-09 14:52 | P.PN ---
Subjective Progress Note Date: 06/09/19 Principal diagnosis: Patient is a 61-year-old male with a known history of advanced COPD and chronic hypoxic respiratory failure, obstructive sleep apnea, hyperlipidemia, chronic d ysphagia and previous history of smoking and chronic left shoulder pain came to ER with complaints of shortness of breath and right-sided chest pain for the past 3 days. Patient does have severe COPD and is on lung transplant list. Patient currently on 5 L oxygen with another cannula at home. Denied any complaints of fever or chills. No nausea vomiting or diarrhea. No abdominal pain. Patient does have cough without much sputum production. Denied any recent travel or exposure to sick contacts. Patient was tachycardic and tachypneic on admission. EKG showed sinus tachycardia. Chest x-ray showed patchy bilateral pneumonia is greater on the right than left. WBC 16.2 Lymphocytes 0.6 and neutrophil count absolute 15.5 D-dimer 2.34 Bicarb 32 and lactic acid 2.4 LDH 1323, CRP 384 and influenza negative. 06/08/2019 Patient is seen and evaluated in follow-up today and continues to be quite dyspneic with exertion with a lot of coughing. Patient states he has some extreme acid reflux and some dysphasia. Protonix was ordered and patient is currently on a dysphagia 3 chopped diet and tolerating. Patient normally wears 5 L of oxygen and is maintaining that. Patient remains on IV steroids along with bronchodilators. Patient continues on antibiotics in the form of IV ceftriaxone along with oral Zithromax and will continue at this time. Patient did have influenza testing which was negative and is currently being tested for Covid 19 from the ER and is pending at this time. Pulmonary is following. Patient's white count is trending down at 11.2. Current sodium today is 139 and potassium is 4.4. Patient underwent a CTA today showing no evidence of PE or thoracic aneurysm or dissection along with a new multifocal alveolar and interstitial airspace disease of the right lower lobe in comparison to his previous PET computed tomography scan in 2018. There is also additionally a new 4 mm left upper lobe pulmonary nodule noted on the CT. 06/09/2019 Patient is seen in follow-up today and continues to have some coughing along with dyspnea with exertion but states his shortness of breath has improved and is currently on 3 L of oxygen via nasal cannula. Normally requires 5 L of oxygen at home. Pulmonary following. Patient was tested for Covid 19 and was negative. Patient remains on inhalers and IV steroids and will continue at this time. Patient to continue with oral Zithromax along with IV ceftriaxone at this time. Patient states that his acid reflux is slightly improved. White blood count trending down and is currently 11.2. Sputum cultures preliminary showing the species along with Ny albicans and will await finalization. No reports of chest pain or palpitations. And is afebrile. No reports of nausea or vomiting and patient is tolerating diet. Objective - Vital Signs Vital signs: Vital Signs Temp 99.1 F 06/09/19 13:55 Pulse 103 H 06/09/19 13:55 Resp 15 06/09/19 13:55 BP 128/78 06/09/19 13:55 Pulse Ox 99 06/09/19 13:55 Intake & Output 06/08/19 06/09/19 06/09/19 18:59 06:59 18:59 Intake Total 780 Output Total 700 900 Balance -700 -120 Weight 49.895 kg Intake: Oral 780 Output: Urine 700 900 Other: Voiding Method Urinal Urinal # Voids 1 - Exam Gen: This is a 63-year-old male lying in bed, alert and oriented 3, thin built HEENT: Head is atraumatic, normocephalic. Pupils equal, round. Sclerae is anicteric. NECK: Supple. No JVD. No lymphadenopathy. No thyromegaly. LUNGS: Diminished breath sounds bilaterally with no wheezing or rhonchi noted. No intercostal retractions. HEART: Regular rate and rhythm. No murmur. ABDOMEN: Soft. Thin. Cachetic . Bowel sounds are present. No masses. No tenderness. EXTREMITIES: No pedal edema. No calf tenderness. NEUROLOGICAL: Patient is awake, alert and oriented x3. Cranial nerves 2 through 12 are grossly intact. - Labs CBC & Chem 7: 06/08/19 06:14 06/08/19 06:14 Labs: Abnormal Lab Results - Last 24 Hours (Table) 06/09/19 06/09/19 Range/Units 05:58 05:58 D-Dimer 0.86 H (<0.60) mg/L FEU C-Reactive Protein 129.1 H (<10.0) mg/L Microbiology - Last 24 Hours (Table) 06/07/19 19:30 Gram Stain - Preliminary Sputum Sputum Culture - Preliminary Yeast species Yeast species#2 Ny albicans 06/07/19 13:21 Blood Culture - Preliminary Blood No Growth after 24 hours Assessment and Plan Assessment: Bilateral pneumonia right greater than left Suspected Covid 19 viral infection, ruled out. Covid 19 is negative Elevated d-dimer. Patient also have right-sided pleuritic chest pain and was tachycardic and tachypneic requiring more than usual oxygen on admission, improved Acute COPD exacerbation Advanced COPD on home oxygen at 5 L Mild protein calorie malnutrition Obstructive sleep apnea on CPAP at home Chronic left shoulder pain Previous history of smoking DVT prophylaxis subcu heparin Plan: Patient will be continued on antibiotic the form of ceftriaxone and azithromycin. Continue with IV hydration and bronchodilators and IV steroids. Oxygen therapy as needed. Pulmonary following. Covid 19 test was sent and is negative. Continue with droplet and contact precautions per policy. Awaiting sputum culture finalization. Further recommendations based on the clinical course. Possible discharge in 24-48 hours.
[2019-06-09 22:44] LABS: Ferritin 153.8 ng/mL (22.0-322.0)
[2019-06-10] MEDS: ALBUTEROL HFA INHALER INHALATION SCH ×3 (04:18→11:39)
--- NOTE | 2019-06-10 08:04 | CDI ---
Documentation Clarification Form Date: 06/10/2019 07:44:56 AM From: Ileana Fuller RN, CCDS Admit Date: 06/07/2019 02:43:00 PM Patient Name: Jamie Callejas Visit Number: [id number] ATTENTION: The Clinical Documentation Specialists (CDI) and [facility] Coding Staff appreciate your assistance in clarifying documentation. Please respond to the clarification below the line at the bottom and electronically sign. The CDI & [facility] Coding staff will review the response and follow-up if needed. Please note: Queries are made part of the Legal Health Record. If you have any questions, please contact the author of this message via ITS. Dr. Diego Watts Pneumonia was documented in your H&P and Progress notes and COVID 119 has been ruled out. Please provide further specificity of the type of pneumonia being treated if known History/Risk Factors: COPD, TEREZA, former smoker Clinical Indicators: 06/06 1311 Admission Vital signs: Temp 97.8, HR 115, RR 30, B/P 143/80, Spo2 97% 6L NC 06/06 & 06/07 Labs: WBC 16.2/11.2 Left shift: 15.5/10.4 Lactic Acid 2.6/1.5 LDH 1323 CRP 384.7/129.1 Procalcitonin 14.54 06/08 CXR:"COPD with superimposed infiltrate in right mid and lower lung, suspect pneumonia. Clinically correlate. Possible trace right effusion." 06/08 Pulmonary Lung/Breathing assessment: "CHEST: No chest wall deformity. Symmetrical expansion. LUNGS: Equal air entry with no crackles, wheeze, rhonchi or dullness." Treatment: Antibiotics: Zithromax 500 mg IVPB x1 followed by 500 mg po Q 24 hrs Rocephin 1 gm IVPB q 24 hrs O2: 6L NC weaned down to 3 Breathing Tx: Spiriva 1 puff QD, Symbicort 2 puffs BID, Ventolin 2 puffs q 4 hrs IV Solumedrol tapering dose In order to capture the severity of condition, please clarify if the condition signifies and you are treating for: Bacterial Pneumonia, specify causal organism (if known) Gram Negative Pneumonia Due to Strep Due to Staph Due to E. coli Other bacteria (please specify) Viral Pneumonia, specify casual organism (if known) Other, please specify Unable to determine (Last Revision: June 2017) Refer to the documentation that is progress. MTDD
[2019-06-10 08:13] VITALS: BP 139/89; PULSE 90; RESP 16; TEMP 97.8
[2019-06-10] MEDS: AZITHROMYCIN 500 MG TAB PO SCH (08:33)
[2019-06-10] MEDS: PANTOPRAZOLE 40 MG TABLET PO SCH (08:33)
[2019-06-10] MEDS: HEPARIN SODIUM,PORCINE 5,000 UNIT/ML 1 ML VIAL SQ SCH (08:33)
[2019-06-10] MEDS: methylPREDNISolone SOD SUCCI 40 MG/ML 1 ML VIAL IV SCH (08:33)
[2019-06-10] MEDS: SYMBICORT 160-4.5 MCG INHALER INHALATION SCH (08:33)
[2019-06-10] MEDS: TIOTROPIUM 18 MCG/PUFF INHALER INHALATION SCH (08:37)
--- NOTE | 2019-06-10 10:39 | XR ---
EXAMINATION TYPE: XR chest 1V portable DATE OF EXAM: 06/10/2019 HISTORY: Shortness of breath. COMPARISON: 06/09/2019 TECHNIQUE: Single view of the chest is submitted. FINDINGS: Demonstrated are scattered senescent parenchymal change. Persistent but slightly improving right mid lung zone and right lower lobe mixed interstitial and polina eolar infiltrate with small effusion. The heart is stable. Hilar and mediastinal structures are within normal limits. Degenerative changes are seen of the dorsal spine. IMPRESSION: 1. Persistent but slightly improving right mid lung zone and right lower lobe mixed interstitial and alveolar infiltrate with small effusion.
--- NOTE | 2019-06-10 13:41 | P.PN ---
Subjective Progress Note Date: 06/10/19 Principal diagnosis: Dyspnea, cough, pneumonia This is a 64-year-old male patient with advanced COPD with an FEV1 of 27% of predicted. The patient has gold stage IV disease. The patient is on the chest with this for lung transportation at [facility]. The patient has been having worsening shortness of breath for almost a week. He was unable to come to our office. He underwent a telehealth evaluation through our office and the patient was given a course of Augmentin 875 mg twice a day for the next 10 days and a prednisone burst taper starting with 40 mg to be tapered by 10 mg every 4 days. Nevertheless, the patient got more short of breath and he end up coming into the emergency department today after receiving 2 days course of antibiotics. He progresses doctor worse and at the time of arrival he was on 5 L of oxygen by nasal cannula. He denied having any fever or chills. No nausea or vomiting. Indeed he had a white cell count of 16.2. His lactic acid level was 2.6. Influenza screen came back negative. Chest x-ray showed patchy bilateral pneumonia as right more than left with possibly a small right-sided pleural effusion. For that reason, the patient was started on Rocephin and Zithromax and the patient was hospitalized for an acute bilateral pneumonia and COPD exacerbation. He is also being evaluated for covid 19 and the patient has been placed in droplet isolation for now. Note that the patient's COPD is quite extensive and severe and the patient limited and accommodation Spiriva and Symbicort on outpatient basis and addition to pro-air rescue inhaler on an as- needed basis. No frequent hospitalization for COPD exacerbation. He is an ex- smoker. He is currently on 5 L of oxygen by nasal cannula. His tachycardia is improved and his heart rate is down to 102. He is short of breath and breathing is labored. His tachypnea is also improved and is currently breathing 28 times / minutes On 06/08/2019 patient seen in follow-up on the general medical floor. He is awake and alert, is currently on 5 L of oxygen with a pulse ox of 96%, patient normally wears 5 L of oxygen at home for history of chronic hypoxemic respira tory failure related to COPD/emphysema. Patient is afebrile. His Covid 19 testing is still pending, patient is currently on Zithromax, Rocephin, IV steroids, Symbicort and Spiriva. Today's chest x-ray shows improvement in the right basilar component of multifocal interstitial right lung opacity. CTA chest showed no evidence of pulmonary embolism, and new multifocal alveolar and interstitial airspace disease of the right lower lobe. And new 4 mm left upper lobe pulmonary nodule. Sputum Gram stain is positive for many polymorphonuclear leukocytes, many yeast, final culture is pending. Patient states he felt slightly better on today's exam On 06/09/2019 patient seen in follow-up general medical floor. He is awake and alert, no acute distress, he is currently on 3 L of oxygen with a pulse ox of 99 100%, he has been afebrile. His Covid 19 status is negative, influenza was negative. Today's labs have been reviewed, d-dimer is mildly elevated at 0.86, white blood cell count of 11.2, hemoglobin is 12.6, electrolytes are within normal limits with exception of CO2 which is at 32, B1 is 30 creatinine 0.68, CRP is 129, ferritin level is currently pending, patient remains in droplet isolation precautions per the new policy that states ruled out patient's to remain in droplet isolation or precaution of false-negative testing. Remains on Rocephin and Zithromax, and IV Solu-Medrol, patient is on Symbicort, and Spiriva MDI inhalers. He is calm and comfortable, he is on 3 L of oxygen On 06/10/2019 patient seen in follow-up on the general medical floor, he is awake and alert, in no acute distress, he is on 3 L of oxygen, pulse ox is 91- 97%, hemodynamically stable, his been afebrile, he states he is feeling better, breathing easier, no acute events overnight, today's lab work has been reviewed, and d-dimer is trending down, down to 0.86, CRP is down to 129, and LDH is withi n normal range at 404, chronic virus was ruled out, follow-up chest x-ray today shows persistent but slightly improving right midlung zone and right lower lobe interstitial and alveolar infiltrate with small effusion, clinically stable, he is been treated with a combination of Zithromax and Rocephin improved, from pulmonary perspective patient can be considered for discharge home today Objective - Vital Signs Vital signs: Vital Signs Temp 97.8 F 06/10/19 07:00 Pulse 90 06/10/19 07:00 Resp 16 06/10/19 07:00 BP 139/89 06/10/19 07:00 Pulse Ox 91 L 06/10/19 07:00 Intake & Output 06/09/19 06/10/19 06/10/19 18:59 06:59 18:59 Intake Total 1555 200 Output Total 900 750 Balance 655 -750 200 Intake: Intake, IV Titration 625 Amount Sodium Chloride 0.9% 1, 525 000 ml @ 75 mls/hr IV . [id number] OMARI Rx#:[id number] cefTRIAXone 1 gm In 100 Sodium Chloride 0.9% 50 ml @ 100 mls/hr IVPB Q24H OMARI Rx#:[id number] Oral 930 200 Output: Urine 900 750 Other: Voiding Method Urinal Urinal Urinal # Voids 1 - Exam GENERAL EXAM: Alert, very pleasant, 63-year-old white male, on 3 L of oxygen with pulse ox of 97% comfortable in no apparent distress. HEAD: Normocephalic/atraumatic. EYES: Normal reaction of pupils, equal size. Conjunctiva pink, sclera white. NOSE: Clear with pink turbinates. THROAT: No erythema or exudates. NECK: No masses, no JVD, no thyroid enlargement, no adenopathy. CHEST: No chest wall deformity. Symmetrical expansion. LUNGS: Equal air entry with no crackles, wheeze, rhonchi or dullness. CVS: Regular rate and rhythm, normal S1 and S2, no gallops, no murmurs, no rubs ABDOMEN: Soft, nontender. No hepatosplenomegaly, normal bowel sounds, no gua rding or rigidity. EXTREMITIES: No clubbing, no edema, no cyanosis, 2+ pulses and upper and lower extremities. MUSCULOSKELETAL: Muscle strength and tone normal. SPINE: No scoliosis or deformity SKIN: No rashes CENTRAL NERVOUS SYSTEM: Alert and oriented -3. No focal deficits, tone is normal in all 4 extremities. PSYCHIATRIC: Alert and oriented -3. Appropriate affect. Intact judgment and insight. - Labs CBC & Chem 7: 06/08/19 06:14 06/08/19 06:14 Labs: Microbiology - Last 24 Hours (Table) 06/07/19 13:21 Blood Culture - Preliminary Blood No Growth after 48 hours 06/07/19 19:30 Gram Stain - Preliminary Sputum Sputum Culture - Preliminary Yeast species Yeast species#2 Ny albicans Assessment and Plan Plan: Assessment: #1. Acute bilateral pneumonia, CTA chest showing multifocal alveolar and interstitial airspace disease of the right lower lobe, and a new 4 mm left upper lobe pulmonary nodule compared to the last PET/computed tomography scan. Possibly of Covid 19 infection is being considered, patient has been tested and the results are negative. Elevated pro-calcitonin suggesting bacterial infection #2. Severe COPD with a baseline FEV1 of 27% of predicted with chronic hypoxemic respiratory failure #3. Acute and chronic hypoxic respiratory failure #4. Decreased body mass index, chronic cachexia related to advanced COPD #5. Mild lactic acidosis, improved #6. Lung transplant candidate, patient is listed at the [facility] #7. Leukocytosis secondary to the above #8. Elevated d-dimer, CTA chest was negative for any evidence of pulmonary embolism #9. Elevated CRP, and LDH , COVID 19 infection is being ruled out Plan: Today's chest x-ray shows improvement in the appearance of a right lower lung p neumonia, patient has been treated with antibiotics, he is clinically stable, FiO2 is down to 3 L, no acute events overnight, from pulmonary perspective patient can be considered for discharge home today with outpatient follow-up I performed a history & physical examination of the patient and discussed their management with my nurse practitioner, Monserrat Torres. I reviewed the nurse practitioner's note and agree with the documented findings and plan of care. Lung sounds are positive for diminished breath sounds bilaterally The findings and the impression was discussed with the patient. I attest to the documentation by the nurse practitioner. Time with Patient: Less than 30
--- NOTE | 2019-06-10 14:03 | P.DS ---
Providers Date of admission: 06/07/19 14:43 Expected date of discharge: 06/10/19 Attending physician: Mohamud Valiente Consults: 06/07/19 14:42 Consult Physician Routine Consulting Provider: Derek Naranjo Consult Reason/Comments: Pneumonia, COPD Do you want consulting provider notified?: Yes Primary care physician: [facility] Course: Final diagnosis Bilateral pneumonia right greater than left, bacterial pneumonia with unknown organism. Ruled out Covid 19 viral infection. Covid 19 is negative Elevated d-dimer. Acute COPD exacerbation Advanced COPD on home oxygen at 5 L Mild protein calorie malnutrition Obstructive sleep apnea on CPAP at home Chronic left shoulder pain Previous history of smoking DVT prophylaxis Discharge disposition Patient is being discharged in a stable condition with guarded prognosis to home. Patient will follow-up with Dr. Sanders in the outpatient setting upon discharge. Patient will continue on a prednisone taper along with Ceftin twice daily for the next 5 days in the outpatient setting. Total time taken 35 minutes. History of present illness This is a 63-year-old male who was recently admitted with increased shortness of breath and right-sided chest pain and was being closely monitored. Patient is a known history of advanced COPD and chronic hypoxic respiratory failure and is O2 dependent with 5 L via nasal cannula. Patient was seen and evaluated by pulmonary. Patient does have severe COPD and is on a lung transplant list. Patient was continued on bronchodilators along with prednisone and IV and oral antibiotics in the form of Rocephin and Zithromax. Blood cultures remain negative. Sputum cultures show Ny albicans and patient will be provided a nystatin prescription upon discharge. Patient will continue with oral Ceftin twice daily for the next 5 days along with a prednisone taper. Patient was tested for Covid 19 during hospitalization and was negative. Patient underwent CTA due to elevated d-dimer showing no evidence of PE although there was an additional 4 mm left upper lobe pulmonary nodule noted on exam. Patient will be following up with Dr. Sanders in the outpatient setting. Currently no reports of chest pain, palpitations, or worsening shortness of breath. Patient is afebrile. No reports of nausea or vomiting and patient is tolerating diet. Patient will be discharged home this afternoon. On exam vital signs are stable. Temp is 97.8 F, pulse is 90, respirations are 16, blood pressure is 139/89, oxygen saturation is 91% on 3 L via nasal cannula. Cardio S1, S2 are muffled. Respiratory system shows diminished breath sounds at the bases. Mild rhonchi and expiratory wheezing noted on exam. Abdomen is soft and nontender. Nervous system shows no focal deficits. Please refer to medication reconciliation sheet for a list of medications. Patient Condition at Discharge: Fair Plan - Discharge Summary New Discharge Prescriptions: New Cefuroxime Axetil [Ceftin] 500 mg PO BID 5 Days #10 tab Nystatin 100,000 Unit/ml Susp [Mycostatin Oral Susp] 5 ml PO QID 10 Days ml predniSONE 10 mg PO DIRECTED #30 tab Pantoprazole [Protonix] 40 mg PO AC-BID 30 Days #60 tablet.dr Continue Tiotropium 18 Mcg/Puff [Spiriva] 1 cap INHALATION RT-DAILY Albuterol Sulfate [Proair Hfa] 2 puff INHALATION RT-Q6H PRN PRN Reason: Shortness Of Breath oxyCODONE HCL [oxyCODONE HCL (IR)] 10 mg PO QID PRN PRN Reason: Pain Budesonide-Formot 160-4.5 Mcg [Symbicort 160-4.5 Mcg Inhaler] 2 puff INHALATION RT-BID 30 Days #1 puff Discontinued predniSONE See Taper PO DAILY Amoxicillin/Potassium Clav [Augmentin 875-125 Tablet] 1 tab PO BID Discharge Medication List Tiotropium 18 Mcg/Puff [Spiriva] 1 cap INHALATION RT-DAILY 12/08/15 [History] Albuterol Sulfate [Proair Hfa] 2 puff INHALATION RT-Q6H PRN 09/02/17 [History] oxyCODONE HCL [oxyCODONE HCL (IR)] 10 mg PO QID PRN 09/02/17 [History] Budesonide-Formot 160-4.5 Mcg [Symbicort 160-4.5 Mcg Inhaler] 2 puff INHALATION RT-BID 30 Days #1 puff 06/10/19 [Rx] Cefuroxime Axetil [Ceftin] 500 mg PO BID 5 Days #10 tab 06/10/19 [Rx] Nystatin 100,000 Unit/ml Susp [Mycostatin Oral Susp] 5 ml PO QID 10 Days ml 06/10/19 [Rx] Pantoprazole [Protonix] 40 mg PO AC-BID 30 Days #60 tablet. 06/10/19 [Rx] predniSONE 10 mg PO DIRECTED #30 tab 06/10/19 [Rx] Follow up Appointment(s)/Referral(s): Raf Sanders DO [Primary Care Provider] - 07/07/19 9:30 am [facility], [NON-STAFF] - Patient Instructions/Handouts: Pneumonia (DC) Activity/Diet/Wound Care/Special Instructions: Activity Limited until follow-up Continue current diet Continue with antibiotics for 5 days until finished Continue with prednisone taper Continue with bronchodilators Follow-up with primary care provider upon discharge Discharge Disposition: HOME SELF-CARE
== END 2019-06-10 14:33 | disposition home or self-care (01) | DRG 193 ==
LOC: EC 13:08 → 4SSUR 14:43
PROVIDERS: ADMIT Internal Medicine; ATTEND Internal Medicine
DX: J15.9 Unspecified bacterial pneumonia (principal); J96.21 Acute and chronic respiratory failure with hypoxia; E44.1 Mild protein-calorie malnutrition; E87.2 Acidosis; R64 Cachexia; Z68.1 Body mass index [BMI] 19.9 or less, adult; Z16.24 Resistance to multiple antibiotics; Z20.828 Contact with and (suspected) exposure to other viral communicable diseases; E78.5 Hyperlipidemia, unspecified; G47.33 Obstructive sleep apnea (adult) (pediatric); G89.29 Other chronic pain; J43.9 Emphysema, unspecified; K21.9 Gastro-esophageal reflux disease without esophagitis; R13.10 Dysphagia, unspecified; R47.02 Dysphasia; Z76.82 Awaiting organ transplant status; Z79.51 Long term (current) use of inhaled steroids; Z82.5 Family history of asthma and other chronic lower respiratory diseases; Z87.891 Personal history of nicotine dependence; Z96.612 Presence of left artificial shoulder joint; Z99.81 Dependence on supplemental oxygen; Z79.891 Long term (current) use of opiate analgesic; Z79.52 Long term (current) use of systemic steroids; Z86.14 Personal history of Methicillin resistant Staphylococcus aureus infection; Z99.89 Dependence on other enabling machines and devices; R91.1 Solitary pulmonary nodule
CPT/HCPCS: 36415; 71045; 71046; 71275; 80048; 80053; 82550; 82728; 83605; 83615; 83735; 83880; 84145; 84484; 85025; 85379; 85610; 85730; 86140; 87040; 87070; 87205; 87502; 87635; 93005; 94640; 96365; 96374; 96375; 99291

== ENCOUNTER 2019-06-20 08:59 | Emergency (ER) | payer MEDICARE, OTHER ==
[2019-06-20 09:04] VITALS: TEMP 98
[2019-06-20] MEDS ORDERED: ALBUTEROL HFA INHALER INHALATION STA (09:38)
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
--- NOTE | 2019-06-20 09:55 | XR ---
EXAMINATION TYPE: XR chest 1V portable DATE OF EXAM: 06/20/2019 HISTORY: Suspected COVID-19 pneumonia. REFERENCE: Previous study dated 06/10/2019. FINDINGS: There has been a previous left shoulder arthroplasty. There is worsening infiltrate in the right lung base. There is minimal patchy airspace disease the le ft lung base. There is blunting of both CP angles. I could not exclude small effusions. The heart is not enlarged. IMPRESSION: WORSENING BIBASILAR INFILTRATES.
[2019-06-20 10:11] LABS: Basophils % (A) 0 %; Eosinophils % (A) 0 %; HCT 37.7 % (39.0-53.0); HGB 12.1 gm/dL (13.0-17.5); Lymphocytes # (A) 1.1 k/uL (1.0-4.8); Lymphocytes % (A) 7 %; MCH 30.5 pg (25.0-35.0); MCV 95.4 fL (80.0-100.0); Mean Platelet Volume 7.6; Monocytes # (A) 1.1 k/uL (0-1.0); Monocytes % (A) 6 %; Neutrophils # (A) 14.8 k/uL (1.3-7.7); Neutrophils % (A) 86 %; RBC 3.96 m/uL (4.30-5.90); RDW 13.2 % (11.5-15.5); WBC 17.2 k/uL (3.8-10.6)
[2019-06-20 10:15] LABS: Platelet Count 683 k/uL (150-450)
[2019-06-20 10:16] LABS: ALT 23 U/L (4-49); AST 25 U/L (17-59); African American GFR (CKD) >90 (>60 ml/min/1.73 sqM); Albumin 3.3 g/dL (3.5-5.0); Alkaline Phosphatase 91 U/L (38-126); Anion Gap 6 mmol/L; Blood Urea Nitrogen 11 mg/dL (9-20); Calcium 8.2 mg/dL (8.4-10.2); Carbon Dioxide 31 mmol/L (22-30); Chloride 97 mmol/L (98-107); Creatine Kinase 36 U/L (55-170); Glucose 111 mg/dL (74-99); LDH 464 U/L (313-618); Magnesium 2.1 mg/dL (1.6-2.3); Non-African American GFR(CKD) >90 (>60 ml/min/1.73 sqM); Potassium 4.4 mmol/L (3.5-5.1); Sodium 134 mmol/L (137-145); Total Bilirubin 0.9 mg/dL (0.2-1.3); Total Protein 6.9 g/dL (6.3-8.2)
[2019-06-20 10:22] LABS: Prothrombin Time 10.3 sec (9.0-12.0)
[2019-06-20 10:28] LABS: C Reactive Protein 150.4 mg/L (<10.0)
[2019-06-20 10:36] LABS: D-Dimer 1.84 mg/L FEU (<0.60)
[2019-06-20 10:37] LABS: Partial Thromboplastin Time 21.1 sec (22.0-30.0)
[2019-06-20] MEDS ORDERED: cefTRIAXone IN SWFI 1,000 MG/10 ML SYRINGE IVP STA (11:34)
[2019-06-20 11:43] VITALS: BP 134/84; PULSE 80; RESP 18
[2019-06-22 11:47] LABS: Ferritin 132.4 ng/mL (22.0-322.0)
== END 2019-06-20 11:49 | disposition home or self-care (01) ==
LOC: EC 08:59
DX: J44.0 Chronic obstructive pulmonary disease with (acute) lower respiratory infection (principal); J18.9 Pneumonia, unspecified organism; D72.829 Elevated white blood cell count, unspecified; G47.33 Obstructive sleep apnea (adult) (pediatric); Z79.51 Long term (current) use of inhaled steroids; Z87.891 Personal history of nicotine dependence; Z99.89 Dependence on other enabling machines and devices
CPT/HCPCS: 36415; 94640; 93005; 85379; 80053; 82728; 82550; 83605; 83615; 83735; 85025; 85610; 85730; 86140; 87040; 87502; 84145; 87635; 71045; 99285; 96374; J0696

== ENCOUNTER 2020-06-02 15:46 | Emergency (ER) | payer MEDICARE, OTHER ==
--- NOTE | 2020-06-02 17:23 | ED ---
General Adult HPI <Sanjeev Larry - Last Filed: 06/02/20 17:24> - General Source: patient, family, RN notes reviewed, old records reviewed <Raf Lopez - Last Filed: 06/02/20 19:30> - General Stated complaint: Covid +, Infusion Time Seen by Provider: 06/02/20 16:20 - History of Present Illness Initial comments: 64-year-old male with history of oxygen dependent COPD presents to the emergency department with a chief complaint of covid and infusion. States he was instructed by to come for monoclonal antibody infusion. Decreased lung sounds bilaterally auscultation. O2 is 95% on room air. (Sanjeev Larry) Patient had been sent in by his appointment specialist for monoclonal antibody infusion. His coronavirus test was performed on 05/29 and was positive. He states he's been sick for several days prior to this. Has he has a history of COPD and is on 4 L nasal cannula. (Raf Lopez) - Related Data Home Medications Medication Instructions Recorded Confirmed Tiotropium 18 Mcg/Puff [Spiriva] 1 cap INHALATION RT-DAILY 12/08/15 06/20/19 Albuterol Sulfate [Proair Hfa] 2 puff INHALATION RT-Q6H PRN 09/02/17 06/20/19 oxyCODONE HCL [oxyCODONE HCL (IR)] 10 mg PO QID PRN 09/02/17 06/20/19 Albuterol Nebulized [Ventolin 2.5 mg INHALATION RT-Q4H PRN 06/20/19 06/20/19 Nebulized] predniSONE See Taper PO DAILY 06/20/19 06/20/19 Previous Rx's Medication Instructions Recorded Budesonide-Formot 160-4.5 Mcg 2 puff INHALATION RT-BID 30 Days 06/10/19 [Symbicort 160-4.5 Mcg Inhaler] #1 puff Pantoprazole [Protonix] 40 mg PO AC-BID 30 Days #60 06/10/19 tablet. Cefuroxime Axetil [Ceftin] 500 mg PO BID 3 Days #10 tab 06/20/19 predniSONE [Deltasone] 20 mg PO BID #10 tab 06/20/19 Allergies Allergy/AdvReac Type Severity Reaction Status Date / Time No Known Allergies Allergy Verified 06/02/20 17:24 Review of Systems ROS Other: All systems not noted in ROS Statement are negative. <Sanjeve Larry - Last Filed: 06/02/20 17:24> ROS Other: All systems not noted in ROS Statement are negative. <Raf Lopez - Last Filed: 06/02/20 19:30> ROS Statement: Those systems with pertinent positive or pertinent negative responses have been documented in the HPI. Past Medical History Past Medical History: COPD, Musculoskeletal Disorder, Sleep Apnea/CPAP/BIPAP Additional Past Medical History / Comment(s): Severe COPD, decreased BMI, TEREZA, hyperlipidemia, dysphagia, varicose veins, back and shoulder injury History of Any Multi-Drug Resistant Organisms: MRSA Date of last positivie culture/infection: approx 2007 MDRO Source:: back of left leg Past Surgical History: Orthopedic Surgery, Tonsillectomy Additional Past Surgical History / Comment(s): rt hand -little finger, left rotator cuff surgery, rhinoplasty x 2, right shoulder, right carpal tunnel release, TOTAL LEFT SHOULDER ARTHROPLASTY Past Anesthesia/Blood Transfusion Reactions: No Reported Reaction Past Psychological History: No Psychological Hx Reported Past Alcohol Use History: None Reported Past Drug Use History: None Reported - Past Family History Mother Family Medical History: COPD Father Family Medical History: Deep Vein Thrombosis (DVT) <Sanjeev Larry - Last Filed: 06/02/20 17:24> General Exam General appearance: alert, in no apparent distress Head exam: Present: atraumatic, normocephalic Eye exam: Present: normal appearance, PERRL ENT exam: Present: normal exam Neck exam: Present: normal inspection. Absent: tenderness, meningismus Respiratory exam: Present: wheezes, decreased breath sounds, prolonged expiratory. Absent: respiratory distress Cardiovascular Exam: Present: regular rate, normal rhythm GI/Abdominal exam: Present: soft. Absent: distended, tenderness Extremities exam: Present: normal inspection, normal capillary refill. Absent: pedal edema Neurological exam: Present: alert, oriented X3, CN II-XII intact. Absent: motor sensory deficit Psychiatric exam: Present: normal affect, normal mood Skin exam: Present: warm, dry, intact. Absent: cyanosis, diaphoretic <Raf Lopez - Last Filed: 06/02/20 19:30> Course Vital Signs 06/02/20 17:20 Temperature 98.4 F Pulse Rate 94 Respiratory 18 Rate Blood Pressure 146/89 O2 Sat by Pulse 95 Oximetry Medical Decision Making <Raf Lopez - Last Filed: 06/02/20 19:30> - Medical Decision Making 64-year-old male oxygen dependent COPD sent in for medical antibody therapy for coronavirus that was diagnosed on May 29. Patient is in no respiratory distress. He has significant comorbidities including COPD on 4 L of oxygen by nasal cannula. He is transfused monoclonal antibodies and is very eager for discharge. Return parameters are discussed and the patient will follow-up with his appointment specialist. (Raf Lopez) Disposition <Sanjeev Larry - Last Filed: 06/02/20 17:24> Is patient prescribed a controlled substance at d/c from ED?: No Time of Disposition: 19:12 <Raf Lopez - Last Filed: 06/02/20 19:30> Clinical Impression: COVID-19 Disposition: HOME SELF-CARE Condition: Fair Instructions (If sedation given, give patient instructions): Coronavirus Disease 2019 (COVID-19) Referrals: [facility],Clinic [Primary Care Provider] - 1-2 days Derek Naranjo MD [STAFF PHYSICIAN] - 1-2 days
[2020-06-02 17:24] VITALS: TEMP 98.4
[2020-06-02] MEDS ORDERED: BAMLANIVIMAB (EUA) 700 MG, ETESEVIMAB (EUA) 1,400 MG in SODIUM CHLORIDE 0.9% 50 ML IVPB ONE (18:45)
[2020-06-02 19:47] VITALS: BP 122/81; PULSE 77; RESP 20
== END 2020-06-02 20:05 | disposition home or self-care (01) ==
LOC: EC 15:46
DX: U07.1 COVID-19 (principal); J44.9 Chronic obstructive pulmonary disease, unspecified; E78.5 Hyperlipidemia, unspecified; G47.33 Obstructive sleep apnea (adult) (pediatric); Z79.51 Long term (current) use of inhaled steroids
CPT/HCPCS: 99283; 96374; Q0245

== ENCOUNTER → 2020-06-21 | Outpatient (CLI) | payer MEDICARE, OTHER ==
--- NOTE | 2020-06-22 07:50 | CTL ---
EXAMINATION TYPE: CT Low Dose Lung DATE OF EXAM ORDERED: 06/21/2020 HISTORY: Long-term tobacco use. Lung cancer screening CT DLP: 40.[address] CTDI: 1.2 mGy Automated exposure control for dose reduction was used. SCREENING VISIT: First after baseline COMPARISON: Prior low-dose lung screening study July 30, 2017 TECHNIQUE: Low dose computed tomography scan was performed through the chest at 1 mm thick sections a nd reconstructed images in the coronal plane at [address] DIAGNOSTIC QUALITY: Satisfactory FINDINGS: LUNG NODULES: None. LUNGS: COPD: Severity: Moderate to advanced Fibrosis: Severity: Mild to moderate parenchymal scarring in the bases just above the diaphragm, slig htly less nodular appearance to right lateral lower lung scarring on current study versus prior. Ther e is new lateral upper lung scarring with peripheral bleb formation near image 36. Stable focal scarr ing superior aspect left lower lobe near image 73. Lymph nodes: None Other findings: Non- RIGHT PLEURAL SPACE: Effusion: None Calcification: None Thickening: None Pneumothorax: None LEFT PLEURAL SPACE: Effusion: None Calcification: None Thickening: None Pneumothorax: None HEART: Heart Size: Normal Coronary calcification: Moderate to severe three-vessel redemonstrated Pericardial effusion: None OTHER FINDINGS: Upper abdomen: None Bony thorax: Metallic hardware from left shoulder arthroplasty causes streak artifact similar to prio r. Supraclavicular region: None. Other: None IMPRESSION: Moderate to severe emphysematous changes redemonstrated with mild to moderate scattered p arenchymal scarring, interval progression from 2018 study. No new suspicious nodules. CT LUNG RAD AND CT CHEST RECOMMENDATION: Lung-Rad 1 Negative: Continue annual screening with LDCT in 12 months. S Modifier (other clinically significant findings): S Persistent moderate to severe three-vessel coronary artery calcification, correlate with additional c ardiac risk factors.
== END | disposition home or self-care (01) ==
LOC: RADCTMAIN 16:58
PROVIDERS: ATTEND Internal Medicine Critical Care Medicine
DX: Z12.2 Encounter for screening for malignant neoplasm of respiratory organs (principal); J43.9 Emphysema, unspecified; I25.10 Atherosclerotic heart disease of native coronary artery without angina pectoris; Z87.891 Personal history of nicotine dependence
CPT/HCPCS: 71271

== ENCOUNTER → 2022-03-14 | Outpatient (CLI) | payer MEDICARE, OTHER ==
--- NOTE | 2022-03-14 19:04 | CTL ---
EXAMINATION TYPE: CT Low Dose Lung DATE OF EXAM: 03/14/2022 4:30 PM CLINICAL INDICATION:Male, 66 years old with history of Z87.891 PERSONAL HISTORY NICOTINE DEPENDENCE; FORMER SMOKER. QUIT 6 YEARS AGO. HX OF SMOKING 2 PACKS A DAY X50 YEARS. , history of tobacco use. COMPARISON: 06/21/2020 TECHNIQUE: Multiple axial non-contrast scans were obtained from approximately the lung apices through the upper abdomen. Coronal and sagittal reformatted images were obtained. Low dose technique was uti lized. CT DLP: 43.50 mGycm, Automated exposure control for dose reduction was used. CT Contrast: Contrast used: None Oral contrast used: None FINDINGS: ======== Lack of intravenous contrast and low dose technique limits the evaluation of the vascular and soft ti ssue structures. LUNGS: Severe emphysema changes are seen throughout the lungs. Stable pleural thickening/scarring.. M ultiple blebs and bulla are present. No pneumothorax or pleural effusion or focal consolidation. Left lower lobe calcified granuloma. Nodules: RUL: None. RML: None. RLL: None. DAYSI: None. LLL: None. AIRWAY: Patent and unremarkable. HEART: Size within normal limits. Moderate coronary artery atherosclerosis is present. MEDIASTINUM: No gross evidence of adenopathy. VASCULATURE: No aortic aneurysm. MUSCULOSKELETAL: No acute osseous abnormalities, multilevel disc degeneration changes throughout the spine. Left arthroplasty changes are present. SOFT TISSUES/LYMPH NODES: Unremarkable. LOWER NECK: No significant findings. UPPER ABDOMEN: No significant findings. IMPRESSION: 1. No clinically significant pulmonary nodules. 2. Severe emphysema changes. 3. Severe coronary artery atherosclerosis. CT LUNG RAD AND CT CHEST RECOMMENDATION: Lung-Rad 1 Negative: Continue annual screening with LDCT in 12 months. S Modifier (other clinically significant findings): S severe coronary artery atherosclerosis. Recommend smoking cessation (if current smoker), or continuation of smoking cessation (if prior smoke r). Annual screening for lung cancer with low-dose computed tomography is recommended in adults ages 55 to 77 years who have a 30 pack-year smoking history and currently smoke or have quit within the pa st 15 years. Screening should be discontinued once a person has not smoked for 15 years or develops a health problem that substantially limits life expectancy or the ability or willingness to have curat sera lung surgery.
== END | disposition home or self-care (01) ==
LOC: RADCTMAIN 16:00
PROVIDERS: ATTEND Internal Medicine Critical Care Medicine
DX: Z12.2 Encounter for screening for malignant neoplasm of respiratory organs (principal); J43.9 Emphysema, unspecified; I25.10 Atherosclerotic heart disease of native coronary artery without angina pectoris; Z87.891 Personal history of nicotine dependence
CPT/HCPCS: 71271

== ENCOUNTER → 2023-03-15 | Outpatient (CLI) | payer MEDICARE, OTHER ==
--- NOTE | 2023-03-15 15:50 | CTL ---
EXAMINATION TYPE: CT Low Dose Lung DATE OF EXAM ORDERED: 03/15/2023 HISTORY: Lung cancer screening CT DLP: 42.[address] CTDI: 1.1 mGy Automated exposure control for dose reduction was used. COMPARISON: 03/14/2022 TECHNIQUE: Low dose computed tomography scan was performed through the chest at 1 mm thick sections a nd reconstructed images in multiple planes at 1 mm and [address] DIAGNOSTIC QUALITY: Satisfactory FINDINGS: There is coarse pleural-parenchymal scarring in the right lung apex. There is pleural parenchymal sca rring with probable round atelectasis in the left upper lobe posteriorly. There are marked emphysematous changes with hyperinflation lungs and marked cystic changes throughout the lung parenchyma. There is no abnormal airspace/consolidative density. There is no pleural effusi on or pneumothorax. The great vessels chest are normal is no mediastinal, hilar or axillary adenopathy. Limited scanning through the upper abdomen reveals no gross abnormality. No focal osseous lesions are seen. IMPRESSION: 1. No new or suspicious lung mass or nodule. Lung RADS category 1 negative. Continue routine screenin g at yearly intervals. 2. Marked emphysematous changes. 3. No acute cardiopulmonary disease.
== END | disposition home or self-care (01) ==
LOC: RADCTMAIN 12:31
PROVIDERS: ATTEND Internal Medicine Critical Care Medicine
DX: Z12.2 Encounter for screening for malignant neoplasm of respiratory organs (principal); J43.9 Emphysema, unspecified; Z87.891 Personal history of nicotine dependence
CPT/HCPCS: 71271